=== PATIENT | male | born 1955 | race Caucasian/White ===

== ENCOUNTER 2020-08-25 09:43 | Outpatient (REF) | payer BC, SELFPAY | END 2020-08-25 09:44 | disposition home or self-care (01) | LOC: HO.LAB 09:43 | PROVIDERS: Visit Provider Internal Medicine | DX: Z20.828 Contact with and (suspected) exposure to other viral communicable diseases (principal) | CPT/HCPCS: C9803; U0003 ==

== ENCOUNTER 2024-10-18 10:16 | Inpatient (IN) | payer MEDICARE, SELFPAY ==
[2024-10-18] VITALS (11 sets, daily range): BP systolic 117–172; BP diastolic 11–118; PULSE 99–173; RESP 15–24; TEMP 36.4–36.9; O2SAT 89–95; BMI 22.7
--- NOTE | ~2024-10-18 | XR_ITS ---
EXAMINATION: XR CHEST CLINICAL INFORMATION: sob COMPARISON: None available. TECHNIQUE: Frontal view of the chest was obtained. FINDINGS: Cardiac silhouette is prominent and likely mildly enlarged. Mediastinal and hilar contours are normal. Aortic mural calcification. There are bilateral diffuse patchy airspace opacities, with more confluent opacity in the right lower lung. Loss of the right heart border likely indicates right middle lobe involvement. No pneumothorax. Suspect small right effusion. No definite left effusion. No focal osseous or soft tissue abnormality. Degenerative changes bilateral shoulder joints and spine. XR/XR chest 1V IMPRESSION: 1. Multifocal pneumonitis suspected with more confluent pneumonia in the right base. 2. Suspect small right effusion. 3. Mild cardiac enlargement. A component of underlying CHF is a possibility. 4. Unfortunately, no prior available to compare. Electronically signed by: Cecilio Henry MD 10/18/2024 11:33 AM [facility]
--- NOTE | 2024-10-18 10:42 | ECG_ITS ---
Test Reason : CHEST PAIN Blood Pressure : */* mmHG Vent. Rate : 157 BPM Atrial Rate : * BPM P-R Int : * ms QRS Dur : 96 ms QT Int : 308 ms P-R-T Axes : * -12 44 degrees QTcB Int : 497 ms Atrial fibrillation with rapid ventricular response Nonspecific ST and T wave abnormality Abnormal ECG No previous ECGs available Referred By: Regan Donovan Electronically Signed By: MEDINA ORDONEZ
--- NOTE | 2024-10-18 10:45 | ED.SOB ---
HPI - SOB/Dyspnea General Chief Complaint: Dyspnea Stated Complaint: SOB,RAPID AFIB 160-170 BPM PER EMS Time Seen by Provider: 10/18/24 10:36 Source: patient and EMS Mode of arrival: EMS Limitations: no limitations History of Present Illness ED Provider: DR. Donovan HPI Narrative: A 68-year-old male brought in by ambulance for evaluation of shortness of breath for the past 8 days, worsening with exertion, no clear relieving factors, patient found by EMS to have rapid atrial fibrillation, was given 5 mg of diltiazem by EMS prior to arrival, on arrival patient is in rapid atrial fibrillation. No chest pain. Related Data Home Medications ?Medication ?Instructions ?Recorded ?Confirmed No Known Home Meds 10/18/24 10/18/24 Allergies Allergy/AdvReac Type Severity Reaction Status Date / Time No Known Allergies Allergy Verified 10/18/24 10:40 Review of Systems Review of Systems: All other systems are reviewed and are negative Constitutional: Reports as per HPI and Reports no additional constitutional complaints Eyes: Reports as per HPI and Reports no additional eye complaints Reports system reviewed and no additional complaints, except as documented Cardiovascular: Reports as per HPI and Reports no additional cardiovascular complaints Respiratory: Reports as per HPI and Reports no additional respiratory complaints Gastrointestinal: Reports as per HPI and Reports no additional gastrointestinal complaints Genitourinary: Reports no additional female genitourinary complaints Musculoskeletal: Reports no additional musculoskeletal complaints Skin/Breast: Reports system reviewed and no additional complaints, except as docu Psychiatric: Reports no additional psychiatric complaints Endocrine: Reports no additional endocrine complaints Hematologic/Lymphatic: Reports no additional hematologic/lymphatic complaints Allergic/Immunologic: Reports no additional allergic/immunologic complaints Reports system reviewed and no additional complaints, except as documented and Reports Abnormal speech present FOR[facility] Past Medical History Medical History HTN (hypertension) Social History Social History Patient Tobacco Use Status: Never used Tobacco Smoked in Last 30 Days: Yes Use of substances other than those prescribed or required for medical reasons: Yes Substance Use Type: Crack/Cocaine and Marijuana Advance Directives: No Advance Directives Information Provided: Yes Do you have a plan to hurt others: No Plan Nutrition Risks: No Nutritional Risk Physical Exam Vital Signs: Vital Signs: Last Vital Signs Temp 98.1 F 10/18/24 16:23 Pulse 127 H 10/18/24 18:52 Resp 20 10/18/24 18:52 BP 145/108 H 10/18/24 18:52 Pulse Ox 89 L 10/18/24 18:52 O2 Del Method Room Air 10/18/24 18:52 O2 Flow Rate 2 10/18/24 12:08 BMI result Body Mass Index 22.7 Vital signs have been reviewed and appear to be correct. Blood pressure elevated. Heart rate elevated, Respiratory rate normal. Temperature normal. Oxygen saturation normal. Appearance: Alert. Oriented X3. No acute distress. Head: Normal external exam. Normocephalic. Atraumatic. No Souza signs noted. No raccoon eyes noted Eyes: PERRLA. EOMI. Conjunctiva and sclera normal. Eyelids normal. ENT: TM's Normal. Pharynx normal. Uvula midline. Moist mucous membranes. No trismus noted. No drooling noted. No muffled voice noted. Neck: Normal inspection. Neck supple. FROM. No adenopathy. Thyroid Normal. No meningeal signs. No neck mass noted. CVS: Normal heart rate and rhythm. Heart sound normal. No murmurs noted. Pulses normal throughout. Respiratory: No respiratory distress. Painless inspiration. Breath sounds normal. No wheezes/rales/rhonchi noted. Chest nontender. No accessory muscle usage noted or decreased air movement noted. Abdomen: Soft and nontender. Bowel sounds normal in all 4 quadrants. No distention noted. No organomegaly noted. No visible injury noted. Back: No CVA tenderness. Full range of motion noted. Skin: Skin warm and dry. Normal skin color. Normal skin turgor. No rashes/lesions/lacerations noted. Extremities: No lower extremity edema. Extremities exhibit normal range of motion. Extremities nontender. Neuro: Oriented X 3. Cranial nerve exam: II-XII are grossly intact No motor deficit. No sensory deficit. Reflexes normal. Course Course Course Narrative: 12;00 infection is suspected, abx and fluid was admintrated. no severe spesis or septic shock normal bp and lactic a. Reevaluation(s) Reevaluation #1: Rapid atrial fibrillation initially patient was given diltiazem by EMS had a borderline low blood pressure patient was given metoprolol/digoxin heart rate went from 160s to 120s with slight elevation of troponin with no delta changes case discussed with Dr. Howard who recommended to start on diltiazem IV drip if blood pressure permits for better HR control, and serial trop check. +flu. Time: 16:15 Medications Administered Generic Name Dose Route Start Last Admin Trade Name Freq PRN Reason Stop Dose Admin Diltiazem HCl 125 mg/ Sodium 125 mls @ 0 mls/hr 10/18/24 16:15 10/18/24 16:41 Chloride IVCONT 10 mg/hr .Q0M DEANDRA 10 mls/hr Administration Protocol Per Protocol Discontinued Medications Generic Name Dose Route Start Last Admin Trade Name Freq PRN Reason Stop Dose Admin Ceftriaxone Sodium 1 gm 10/18/24 12:08 10/18/24 12:34 Ceftriaxone Sodium 1 Gm Vial IVPUSH 10/18/24 12:09 1 gm ONCE ONE Administration Digoxin 0.25 mg 10/18/24 10:43 10/18/24 10:58 Digoxin 0.5 Mg/2 Ml Ampul IVPUSH 10/18/24 10:44 0.25 mg ONCE ONE Administration Protocol Diltiazem HCl 20 mg 10/18/24 16:13 10/18/24 16:38 Diltiazem Hcl 50 Mg/10 Ml Vial IVPUSH 10/18/24 16:14 20 mg STAT STA Administration Sodium Chloride 1,000 mls @ 999 mls/hr 10/18/24 10:43 10/18/24 12:39 Ns IV 10/18/24 11:43 Infused .Q1H1M ONE Infusion Sodium Chloride 1,000 mls @ 999 mls/hr 10/18/24 12:09 10/18/24 13:45 Ns IV 10/18/24 13:09 Infused .Q1H1M ONE Infusion Doxycycline Hyclate 100 mg/ 250 mls @ 166.67 mls/hr 10/18/24 16:17 10/18/24 18:26 Sodium Chloride IV 10/18/24 17:46 Infused ONCE ONE Infusion Metoprolol Tartrate 5 mg 10/18/24 10:43 10/18/24 10:58 Metoprolol Tartrate 5 Mg/5 Ml Vial IVPUSH 10/18/24 10:44 5 mg ONCE ONE Administration Protocol Metoprolol Tartrate 5 mg 10/18/24 13:53 10/18/24 14:13 Metoprolol Tartrate 5 Mg/5 Ml Vial IVPUSH 10/18/24 13:54 5 mg ONCE ONE Administration Protocol Medical Decision Making Differential Diagnosis Differential Diagnoses: The differential diagnosis associated with the presentation includes (Pneumonia, pneumothorax, pleural effusion, rapid atrial fibrillation.) Admission/Observation Consideration of admission/observation: Escalation of care including admission/observation considered Consult Healthcare Provider Management of the patient was discussed with: Hospitalist (Dr. Diaz) and Veterinary Hospital Attendant (Dr. Howard) Lab Data MDM Lab Attestation statement: I reviewed the patient's lab results. 10/18/24 10:57 10/18/24 10:57 Labs: Lab Results 10/18/24 10/18/24 10/18/24 Range/Units 10:57 10:57 12:25 WBC 12.7 H (4.8-10.8) X10*3/uL RBC 4.71 (4.60-5.80) X10*6/uL Hgb 14.2 (14.0-18.0) g/dl Hct 42.5 (42.0-52.0) % MCV 90.2 (80.0-98.0) fL MCH 30.1 (27.0-33.0) pg MCHC 33.4 (31.0-36.0) g/dl RDW 13.2 (11.0-16.0) % Plt Count 319 (160-400) X10*3/uL MPV 10.2 (9.4-12.4) fL Immature Gran % (Auto) 0.5 H (0.0-0.4) % Neut % (Auto) 83.5 H (45-73) % Lymph % (Auto) 7.6 L (20-40) % [place] % (Auto) 7.8 (2-11) % Eos % (Auto) 0.3 (0-4) % Baso % (Auto) 0.3 (0-2) % Lymph # (Auto) 1.0 L (1.2-4.9) X10*3/uL [place] # (Auto) 1.0 (0.1-1.2) X10*3/uL Eos # (Auto) 0.0 (0.0-0.4) X10*3/uL Baso # (Auto) 0.0 (0.0-0.2) X10*3/uL Abs Immat Gran (auto) 0.06 H (0.00-0.03) X10*3/uL Absolute Neuts (auto) 10.6 H (2.0-8.3) x10*3/uL Absolute Nucleated RBC 0.000 (0.0-0.012) X10*3/uL Nucleated RBC % (auto) 0.0 (0.0-0.2) /100WBC Hold Purple Top SEE NOTE Sodium 137 (135-145) mmol/L Potassium 4.3 (3.3-5.1) mmol/L Chloride 103 (96-108) mmol/L Carbon Dioxide 25 (22-29) mmol/L Anion Gap 13 (12-20) BUN 30 H (9-16) mg/dL Creatinine 0.89 (0.5-1.4) mg/dL Estim Creat Clear Calc 87.5 Estimated GFR > 60 Random Glucose 108 (60-115) mg/dL Lactic Acid 1.8 (0.5-2.0) mmol/L Calcium 8.6 (8.4-10.2) mg/dL Total Bilirubin 0.6 (0.0-1.0) mg/dL Direct Bilirubin 0.3 (0.0-0.5) mg/dL AST 49 H (5-37) U/L ALT 45 H (0-40) U/L Alkaline Phosphatase 78 (39-117) U/L Troponin I High Sens 155.9 H* (<3.5-35.0) ng/L B-Natriuretic Peptide 1659 H Cancelled (<100) pg/mL Total Protein 6.9 (6.5-8.0) g/dL Albumin 3.0 L (3.5-5.0) g/dL Lipase 16 (8-78) U/L Influenza Type A (PCR) POSITIVE A (Negative) Influenza Type B (PCR) NEGATIVE (Negative) RSV RNA Qual (PCR) NEGATIVE (Negative) SARS-CoV-2 RNA (RT-PCR) NEGATIVE (Negative) 10/18/24 Range/Units 15:08 WBC (4.8-10.8) X10*3/uL RBC (4.60-5.80) X10*6/uL Hgb (14.0-18.0) g/dl Hct (42.0-52.0) % MCV (80.0-98.0) fL MCH (27.0-33.0) pg MCHC (31.0-36.0) g/dl RDW (11.0-16.0) % Plt Count (160-400) X10*3/uL MPV (9.4-12.4) fL Immature Gran % (Auto) (0.0-0.4) % Neut % (Auto) (45-73) % Lymph % (Auto) (20-40) % [place] % (Auto) (2-11) % Eos % (Auto) (0-4) % Baso % (Auto) (0-2) % Lymph # (Auto) (1.2-4.9) X10*3/uL [place] # (Auto) (0.1-1.2) X10*3/uL Eos # (Auto) (0.0-0.4) X10*3/uL Baso # (Auto) (0.0-0.2) X10*3/uL Abs Immat Gran (auto) (0.00-0.03) X10*3/uL Absolute Neuts (auto) (2.0-8.3) x10*3/uL Absolute Nucleated RBC (0.0-0.012) X10*3/uL Nucleated RBC % (auto) (0.0-0.2) /100WBC Hold Purple Top Sodium (135-145) mmol/L Potassium (3.3-5.1) mmol/L Chloride (96-108) mmol/L Carbon Dioxide (22-29) mmol/L Anion Gap (12-20) BUN (9-16) mg/dL Creatinine (0.5-1.4) mg/dL Estim Creat Clear Calc Estimated GFR Random Glucose (60-115) mg/dL Lactic Acid (0.5-2.0) mmol/L Calcium (8.4-10.2) mg/dL Total Bilirubin (0.0-1.0) mg/dL Direct Bilirubin (0.0-0.5) mg/dL AST (5-37) U/L ALT (0-40) U/L Alkaline Phosphatase (39-117) U/L Troponin I High Sens 169.4 H* (<3.5-35.0) ng/L B-Natriuretic Peptide (<100) pg/mL Total Protein (6.5-8.0) g/dL Albumin (3.5-5.0) g/dL Lipase (8-78) U/L Influenza Type A (PCR) (Negative) Influenza Type B (PCR) (Negative) RSV RNA Qual (PCR) (Negative) SARS-CoV-2 RNA (RT-PCR) (Negative) Independent Interpretation I performed an independent interpretation of an: Plain X-Ray (Chest:1. Multifocal pneumonitis suspected with more confluent pneumonia in the right base. 2. Suspect small right effusion. 3. Mild cardiac enlargement. A component of underlying CHF is a possibility. 4. Unfortunately, no prior available to compare. ) Radiology Impression Discussion of test interpretation with radiology: I have reviewed the radiologist's reading. Critical Care Time Critical Care Time Critical Care Time: Yes Total Critical Care Time: 60 Attestation: The patient was critically ill with a high probability of imminent or life-threatening deterioration. I spent greater than 30 minutes of discontinuous time evaluating the patient, delivering critical care at the bedside, discussing evaluating data with consultants. Critical care time does not include time spent performing separately billable procedures or teaching. Time spent performing critical care was 60 minutes. Discharge Plan Discharge Clinical Impression: Atrial fibrillation with RVR, Elevated troponin, Influenza A, Pneumonia, Sepsis Patient Disposition: Admitted As Inpatient
[2024-10-18] MEDS: 0.9 % Sodium Chloride 1,000 ML 999 ML IV ×2 (10:56→12:33)
[2024-10-18] MEDS: Metoprolol Tartrate 5 MG/5 ML VIAL IVPUSH ×2 (10:58→14:13)
[2024-10-18] MEDS: Digoxin 0.5 MG/2 ML AMPUL 0.25 MG IVPUSH (10:58)
[2024-10-18 11:02] LABS: MANUAL DIFF FLAG NO
[2024-10-18 11:03] LABS: Basophils Percent Auto 0.3 % (0-2); Eosinophils Percent Auto 0.3 % (0-4); Hematocrit 42.5 % (42.0-52.0); Hemoglobin 14.2 g/dl (14.0-18.0); Imm Gran Abs Auto 0.06 X10*3/uL (0.00-0.03); Imm Gran Pct Auto 0.5 % (0.0-0.4); Lymphocytes Percent Auto 7.6 % (20-40); Mean Corpuscular HGB Conc 33.4 g/dl (31.0-36.0); Mean Corpuscular Hemoglobin 30.1 pg (27.0-33.0); Mean Corpuscular Volume 90.2 fL (80.0-98.0); Mean Platelet Volume 10.2 fL (9.4-12.4); Monocytes Percent Auto 7.8 % (2-11); Neutrophils Absolute Auto 10.6 x10*3/uL (2.0-8.3); Neutrophils Percent Auto 83.5 % (45-73); Platelet Count 319 X10*3/uL (160-400); Red Blood Count 4.71 X10*6/uL (4.60-5.80); Red Cell Distribution Width 13.2 % (11.0-16.0); White Blood Count 12.7 X10*3/uL (4.8-10.8)
[2024-10-18 11:17] LABS: Alanine Aminotransferase 45 U/L (0-40); Alkaline Phosphatase 78 U/L (39-117); Anion Gap 13 (12-20); Aspartate Amino Transferase 49 U/L (5-37); Bilirubin Direct 0.3 mg/dL (0.0-0.5); Bilirubin Total 0.6 mg/dL (0.0-1.0); Blood Urea Nitrogen 30 mg/dL (9-16); Calcium 8.6 mg/dL (8.4-10.2); Carbon Dioxide 25 mmol/L (22-29); Chloride 103 mmol/L (96-108); Creatinine Clr Calc Pharmacy 87.5; Estimated Glomerular Filt Rate > 60; Glucose Random 108 mg/dL (60-115); Lipase 16 U/L (8-78); Potassium 4.3 mmol/L (3.3-5.1); Sodium 137 mmol/L (135-145); Total Protein 6.9 g/dL (6.5-8.0)
[2024-10-18 11:22] LABS: B Type Natriuretic Peptide 1659 pg/mL (<100)
[2024-10-18 11:29] LABS: Troponin-I High Sensitivity 155.9 ng/L (<3.5-35.0)
[2024-10-18 11:40] LABS: Influenza A PCR POSITIVE (Negative); Influenza B PCR NEGATIVE (Negative); Resp Syncy Virus RNA Qual PCR NEGATIVE (Negative); SARS COV2 PCR INHOUSE NEGATIVE (Negative)
[2024-10-18] MEDS: cefTRIAXone sodium 1 GM VIAL IVPUSH (12:34)
[2024-10-18 12:49] LABS: Lactic Acid 1.8 mmol/L (0.5-2.0)
[2024-10-18 15:39] LABS: Troponin-I High Sensitivity 169.4 ng/L (<3.5-35.0)
[2024-10-18] MEDS: dilTIAZem HCL 50 MG/10 ML VIAL 20 MG IVPUSH (16:38)
[2024-10-18] MEDS: dilTIAZem HCL 125 MG in 0.9 % Sodium Chloride 100 ML 10 MG IVCONT (16:41)
[2024-10-18] MEDS: Doxycycline Hyclate 100 MG in 0.9 % Sodium Chloride 250 ML 166.67 MG IV (16:42)
--- NOTE | 2024-10-18 16:44 | PM.IMHP ---
History of Present Illness Date of Service: 10/18/24 Chief Complaint: Pneumonia, cough, SOB A 68 years old male with no reported past medical history presented to ED with worsening shortness of breath and cough for over 1 week. She reports coughing, dyspnea with exertion, chills but no fever. No chest pain, nausea, vomiting, diarrhea or urinary symptoms. In ED found to be in tachycardia with irregularity. reporting palpitations with no chest pain or heaviness. he noted swelling in his lower extremities. CXR showing possible pneumonia. lab work showing elevated Trop I and BNP. Started on Cardizem drip as multiple doses of IV Cardizem and Metoprolol did not control his heart. Wll be admitted for further work up and treatment. Review of Systems Review of Systems: Yes all other systems are reviewed and are negative [facility] Medical History HTN (hypertension) Social History Smoked in Last 30 Days: Yes Use of substances other than those prescribed or required for medical reasons: Yes Substance Use Type: Crack/Cocaine and Marijuana Advance Directives: No Advance Directives Information Provided: Yes Do you have a plan to hurt others: No Plan Meds Allergies Allergy/AdvReac Type Severity Reaction Status Date / Time No Known Allergies Allergy Verified 10/18/24 10:40 Active Medications: Current Medications Diltiazem HCl 125 mg/ Sodium (Chloride) 125 mls @ 0 mls/hr IVCONT .Q0M [facility]; Protocol Doxycycline Hyclate 100 mg/ (Sodium Chloride) 250 mls @ 166.67 mls/hr IV ONCE ONE Stop: 10/18/24 17:46 Physical Exam Vital Signs and Narrative: Vital Signs: Last Vital Signs Temp 98.1 F 10/18/24 16:23 Pulse 105 H 10/18/24 16:23 Resp 20 10/18/24 16:23 BP 171/111 H 10/18/24 16:23 Pulse Ox 92 10/18/24 16:23 O2 Del Method Room Air 10/18/24 16:23 O2 Flow Rate 2 10/18/24 12:08 BMI result Body Mass Index 22.7 Const: Other: Constitutional : Awake, interactive, not in distress Neck : Normal inspection, Supple Cardiovascular : irregular irregular, no JVP, trace lower extremity edema, tachycardia Respiratory : good bilateral air entry, finme crackles Gastrointestinal: soft, lax, Normal bowel sounds, Non tender Skin : Warm, Dry Neurological : Alert & oriented x3, No focal deficit Results Labs 10/18/24 10:57 10/18/24 10:57 Labs: Laboratory Results - last 24 hr 10/18/24 10/18/24 10/18/24 10:57 10:57 12:25 MCV 90.2 MCH 30.1 MCHC 33.4 RDW 13.2 Plt Count 319 MPV 10.2 Immature Gran % (Auto) 0.5 H Neut % (Auto) 83.5 H Lymph % (Auto) 7.6 L [place] % (Auto) 7.8 Eos % (Auto) 0.3 Baso % (Auto) 0.3 Lymph # (Auto) 1.0 L [place] # (Auto) 1.0 Eos # (Auto) 0.0 Baso # (Auto) 0.0 Abs Immat Gran (auto) 0.06 H Absolute Neuts (auto) 10.6 H Absolute Nucleated RBC 0.000 Nucleated RBC % (auto) 0.0 Hold Purple Top SEE NOTE Anion Gap 13 Estim Creat Clear Calc 87.5 Estimated GFR > 60 Random Glucose 108 Lactic Acid 1.8 Calcium 8.6 Total Bilirubin 0.6 Direct Bilirubin 0.3 AST 49 H ALT 45 H Alkaline Phosphatase 78 B-Natriuretic Peptide 1659 H Cancelled Total Protein 6.9 Albumin 3.0 L Lipase 16 Influenza Type A (PCR) POSITIVE A Influenza Type B (PCR) NEGATIVE RSV RNA Qual (PCR) NEGATIVE SARS-CoV-2 RNA (RT-PCR) NEGATIVE Imaging Radiologist's Impressions: Impressions Chest X-Ray 10/18/24 10:44 IMPRESSION: 1. Multifocal pneumonitis suspected with more confluent pneumonia in the right base. 2. Suspect small right effusion. 3. Mild cardiac enlargement. A component of underlying CHF is a possibility. 4. Unfortunately, no prior available to compare. Electronically signed by: Cecilio Henry MD 10/18/2024 11:33 AM [facility] Assessment and Plan (1) Elevated troponin: Status: Acute (2) Atrial fibrillation with RVR: Status: Acute (3) Sepsis: Status: Acute (4) Pneumonia: Status: Acute (5) CHF (congestive heart failure): Status: Acute Plan A 68 years old male with no reported past medical history presented to ED with worsening shortness of breath and cough for over 1 week. New onset Atrial fibrillation with RvR check Echo Telemetry Cardiology consult Joann Sellers as blood thinner Elevated BNP with non-specific CHF , new likely related to Afib BNP 1659 check Echo if evidence of heart failure Elevated Trop Delta negative for change 155 - [address]\T wave changes No chest pain Likely type 2 Flu A Start Tamiflu Sepsis 2/2 Pneumonia Cover with Azithromycin and Ceftriaxone pending blood cultures DVT PPx Eliquis The patient will need 2 overnight hospital stay for treatment of new onset Afib, CHF and Pneumonia Quality Stroke Does the patient have a stroke diagnosis?: No VTE Prior VTE?: No VTE Risk Level:: Medical - moderate - high VTE Device Contraindication: Treatment Not Indicated VTE Drug Contraindication: N/A - Med Ordered
--- NOTE | 2024-10-18 17:01 | PC.NURSE ---
Resumed care of patient at 1500, pt was very upset about being in the hospital and not understanding what was going on. This RN and MD went into patient room, pt given multiple results, and advised that he needs to be admitted to the hospital, and that he is extremely sick and if he leaves he has a high chance of dying, pt in agreement to stay, pt started on a dilt drip, education given, pt needs met at this time, emotional support given, pt changed over to hopital gown, PO intake given to patient. Pt screen placed in privacy screen to avoid alarms for patient
--- NOTE | 2024-10-18 17:52 | PHA.MEDREC ---
Addendum entered by Melissa Gaston RPh 10/18/24 18:04: reviewed by [facility]. Original Note: Pharmacy Consult ? Medication Reconciliation Pharmacy has completed the medication reconciliation. Patient confirmed he is not taking any medications.
[2024-10-18] MEDS: Oseltamivir Phosphate 75 MG CAPSULE PO (19:58)
[2024-10-18] MEDS: Apixaban 5 MG TABLET PO (22:23)
[2024-10-18 22:39] LABS: Appearance Urine Clear; Color Urine Dark Yellow; Glucose Urine UA Negative (Negative); Leukocyte Esterase Urine Negative (Negative); Nitrite Urine Negative (Negative); Specific Gravity - Urine >= 1.030 (1.005-1.025); UMIC TRIGGER UACC YES; Urine Blood Negative (Negative); Urine Ketones Negative (Negative); Urine Protein 100 (2+) mg/dL (Neg-Trace)
[2024-10-18 22:46] LABS: Bacteria Urine None Seen (None Seen); RBC Urine 0-2 /HPF (0-2); Squamous Epithelial Cell Urine 0-2 /HPF (0-2); WBC Urine 0-5 /HPF (0-5)
--- NOTE | 2024-10-18 23:32 | MHC.EDTECH ---
This tech took over care of pt at 2300,rounded and introduced self to pt,vitals taken,dinner tray taken,pt ate 75% and drank 240MLS,emptied 200MLS from urinal,(dark yellow in color),patient appears comfortable,call hwang in reach
[2024-10-19] VITALS (12 sets, daily range): BP systolic 133–173; BP diastolic 24–111; PULSE 74–126; RESP 13–23; TEMP 36–37.2; O2SAT 74–97
--- NOTE | 2024-10-19 02:27 | PC.NURSE ---
Pt aox4, resting at the bedside. Reports sob. A-fib on the monitor with HR 120's-130's. Hypertensive 154/117. Cardizem drip increased to 15mg/hr per protocol. Monitoring ongoing.
--- NOTE | 2024-10-19 02:31 | PC.NURSE ---
Call made to RT for breathing treatment as pt is sob with labored breathing.
[2024-10-19] MEDS: Albuterol/Iprat 2.5/0.5MG 3 ML AMPUL.NEB INHALE (02:42)
--- NOTE | 2024-10-19 04:05 | MHC.EDTECH ---
Rounds and vitals completed,BP is elevated,155/109, HR 112, O2 sats at 90% on RA, RN was made aware, patient appears comfortable, emptied 225MLS from urinal, call hwang in reach
[2024-10-19 04:41] LABS: Basophils Percent Auto 0.2 % (0-2); Eosinophils Absolute Auto 0.2 X10*3/uL (0.0-0.4); Eosinophils Percent Auto 2.3 % (0-4); Hematocrit 38.8 % (42.0-52.0); Hemoglobin 13.1 g/dl (14.0-18.0); Imm Gran Abs Auto 0.04 X10*3/uL (0.00-0.03); Imm Gran Pct Auto 0.4 % (0.0-0.4); Lymphocytes Absolute Auto 1.2 X10*3/uL (1.2-4.9); Lymphocytes Percent Auto 12.7 % (20-40); MANUAL DIFF FLAG NO; Mean Corpuscular HGB Conc 33.8 g/dl (31.0-36.0); Mean Corpuscular Hemoglobin 30.5 pg (27.0-33.0); Mean Corpuscular Volume 90.4 fL (80.0-98.0); Mean Platelet Volume 11.1 fL (9.4-12.4); Monocytes Percent Auto 10.6 % (2-11); Neutrophils Absolute Auto 6.7 x10*3/uL (2.0-8.3); Neutrophils Percent Auto 73.8 % (45-73); Platelet Count 201 X10*3/uL (160-400); Red Blood Count 4.29 X10*6/uL (4.60-5.80); Red Cell Distribution Width 13.4 % (11.0-16.0); White Blood Count 9.1 X10*3/uL (4.8-10.8)
[2024-10-19 04:59] LABS: Alanine Aminotransferase 36 U/L (0-40); Albumin Level 2.7 g/dL (3.5-5.0); Alkaline Phosphatase 73 U/L (39-117); Anion Gap 13 (12-20); Aspartate Amino Transferase 35 U/L (5-37); Bilirubin Total 0.5 mg/dL (0.0-1.0); Blood Urea Nitrogen 25 mg/dL (9-16); Calcium 8.3 mg/dL (8.4-10.2); Carbon Dioxide 22 mmol/L (22-29); Chloride 105 mmol/L (96-108); Creatinine Clr Calc Pharmacy 114.5; Estimated Glomerular Filt Rate > 60; Glucose Random 101 mg/dL (60-115); Sodium 136 mmol/L (135-145); Total Protein 6.3 g/dL (6.5-8.0)
[2024-10-19] MEDS: dilTIAZem HCL 125 MG in 0.9 % Sodium Chloride 100 ML 15 MG IVCONT (06:24)
--- NOTE | 2024-10-19 07:00 | CA_ITS ---
Transthoracic Echocardiogram Patient (Last, First, Middle): Sudhakar Sprague, Gender: Male Date of : 1955 Age: 68 Procedure Date: 10/19/2024 Procedure Type: Transthoracic Echocardiogram Location: ER Height: 182.88 cm Weight: 75.75 kg BSA: 1.97 m2 Heart Rate: bpm BP: 133 / 103 mmHg [employer] Storage Clerk: BRIJESH Referring MD: Hellen Cagle MD Symptoms: new Afib, CHF Study Quality: Adequate w contrast Conclusions: - The left ventricular systolic function is severely decreased. The visually estimated ejection fraction is between 10-15%. 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 - The left atrium is severely dilated. - There is mild to moderate mitral valve regurgitation. Findings Procedure Information Contrast agent, definity, is being given per protocol without apparent complications. Left Ventricle Moderately increased left ventricular cavity size. There is normal left ventricular wall thickness. The left ventricular systolic function is severely decreased. The visually estimated ejection fraction is between 10 15%. There is severe global hypokinesis. Diastolic function is indeterminate on the basis of available data. Wall Motion Rest Echo Findings The inferolateral wall is akinetic. Right Ventricle Mildly increased right ventricular cavity size. There is mild to moderately decreased right ventricular systolic function. Atria The left atrium is severely dilated. The right atrium is mildly dilated. Aortic Valve The aortic valve was not well visualized. There is no aortic valve stenosis. There is no aortic valve regurgitation. Mitral Valve The mitral valve appears normal. There is mild to moderate mitral valve regurgitation. There is no mitral valve stenosis. Pulmonic Valve There is trace pulmonic valve regurgitation. Tricuspid Valve Normal tricuspid valve structure. There is trace tricuspid valve regurgitation. There is no evidence of pulmonary hypertension. Great Vessels The sinuses of valsalva is normal in size. Venous The inferior vena cava is dilated and collapses less than 50% with inspiration. Pericardium/Pleural There is no evidence of pericardial effusion. Prior Study Comparison No prior study available for comparison. Measurements 2D Linear Measurements IVSd: 0.97 0.6-0.9/0.6-1.0 cm LVIDd: 6.67 3.9-5.3/4.2-5.9 cm LVIDd Index: 3.39 2.4-3.2/2.2-3.1 cm/m2 LVIDs: 5.63 2.0-3.6 cm LVPWd: 0.82 0.7-1.1 cm LA Diam: 5.20 2.7-3.8/3.0-4.0 cm LAIDs Index: 2.64 1.5-2.3 cm/m2 LV Mass: 320.44 67-162/88-224 g LV Mass Index: 162.66 43-95/49-115 g/m2 LVOT Diam: 2.20 3.0+(-)1.3 cm 2D Systolic Function EF 4C: 44.40 >55% EF 2C: 29.40 >55% Mitral Valve MV Pk E: 1.09 MV Decel Time: 123.00 E'Lateral: 8.27 E'Medial: 6.13 E/E' Med: 17.80 E/E' Lat: 13.20 PHT: 36.00 MVA PHT: 6.11 Decel [place]: 8.83 Aortic Valve AoV Pk [place]: 0.76 AoV Mn [place]: 0.57 AoV VTI: 0.13 AoV Pk Grad: 2.00 Aov Mn Grad: 1.00 AWILDA Cont.VTI: 2.82 LVOT LVOT Pk [place]: 0.61 LVOT Mn [place]: 0.45 LVOT VTI: 0.10 LVOT Pk Grad: 1.00 LVOT Mn Grad: 1.00 LVOT Diam: 2.20 LVOT Area: 3.80 Diastolic Function MV Pk E: 1.09 E'Medial: 6.13 E/E' Med: 17.80 E' Laterial: 8.27 E/E' Lat: 13.20 Right Ventricle TAPSE (mm): 12.00 TVS' [place]: 7.47 Tricuspid Valve TR Pk [place]: 2.11 TR Pk Grad: 18.00 RA Press: 15.00 RVSP: 33.00 Great Vessels Aorta Sinus of Valsalva: 4.00 2.0-3.5 cm Ao Asc: 3.50 2.1-3.4 cm Pulmonary Valve PV Pk [place]: 0.50 Peak PV Grad: 1.00 Updated in Other Vendor System with Status of Final Jose A Howard MD electronically signed on 10/19/2024 3:03:04 PM with status of Final
[2024-10-19] MEDS: Apixaban 5 MG TABLET PO ×2 (08:00→20:44)
[2024-10-19] MEDS: Oseltamivir Phosphate 75 MG CAPSULE PO ×2 (08:00→18:42)
[2024-10-19] MEDS: Metoprolol Tartrate 25 MG TABLET PO ×4 (09:11→20:44)
[2024-10-19] MEDS: Azithromycin 500 MG in 0.9 % Sodium Chloride 250 ML 125 MG IV (09:11)
--- NOTE | 2024-10-19 10:02 | P.CONCA_ITS ---
History of Present Illness History of Present Illness Date of Service: 10/19/24 Chief complaint: Afib, RVR, pneumonia Narrative: This is a cardiology consultation regarding atrial fibrillation. Patient denies any previous cardiac issues. No history of any coronary disease or myocardial infarction or cardiomyopathy or arrhythmias or in fact anything cardiac related. He does not take any medications at home and he does not have a PCP either. He came the ER with complaints of coughing, shortness of breath and chills. He states that he has been having flu-like symptoms for the last few weeks. In the ER, he was found to be flu positive. Thought to be having possibly pneumonia. EKG had shown atrial fibrillation with rapid rate. He was put on Cardizem drip. Admitted. He seems to have history of smoking, excessive alcohol as well as drug use. Cocaine use 2 weeks ago per patient. Review of Systems 2 Review of Systems: Yes all other systems are reviewed and are negative Constitutional: Constitutional: Reports as per HPI and Reports no additional constitutional complaints Eyes: Eyes: Reports as per HPI and Denies no additional eye complaints ENT: Denies system reviewed and no additional complaints, except as documented and Reports as per HPI Cardiovascular: Cardiovascular: Reports as per HPI, Reports no additional cardiovascular complaints, Denies acrocyanosis, Denies cool extremities, Denies chest pain, Denies leg edema, Denies lightheadedness, Denies palpitations and Reports dyspnea Respiratory: Respiratory: Reports as per HPI, Denies no additional respiratory complaints and Reports dyspnea Gastrointestinal: Gastrointestinal: Reports as per HPI and Denies no additional gastrointestinal complaints Genitourinary: Genitourinary: Reports no additional male genitourinary complaints and Reports as per HPI Musculoskeletal: Musculoskeletal: Reports no additional musculoskeletal complaints and Reports as per HPI Integumentary/Breasts: Skin/Breast: Reports system reviewed and no additional complaints, except as docu Neurologic: Reports system reviewed and no additional complaints, except as documented and Reports as per HPI Psychiatric: Psychiatric: Reports no additional psychiatric complaints and Reports as per HPI Endocrine: Endocrine: Reports no additional endocrine complaints, Reports as per HPI and Denies palpitations Hematologic/Lymphatic: Hematologic/Lymphatic: Reports no additional hematologic/lymphatic complaints and Reports as per HPI Allergic/Immunologic: Allergic/Immunologic: Reports no additional allergic/immunologic complaints and Reports as per HPI [facility] Past Medical History Medical History HTN (hypertension) Family History Pertinent family history: No pertinent family history Social History Social History (Updated 10/19/24 @ 10:05 by Jose A Howard MD) Alcohol intake: current Alcohol intake frequency: a few times a week Patient Tobacco Use Status: Current everyday Tobacco user Substance Use Type: Crack/Cocaine and Marijuana Meds Allergies Allergy/AdvReac Type Severity Reaction Status Date / Time No Known Allergies Allergy Verified 10/18/24 10:40 Active Medications: Current Medications Acetaminophen (Acetaminophen 325 Mg Tablet) 650 mg PO Q6H PRN PRN Reason: Pain, Mild 1-3,fever,headache Albuterol/Ipratropium (Albuterol/Iprat 2.5/0.5mg 3 Ml Ampul.Neb) 3 ml INHALE Q4H PRN PRN Reason: Shortness of Breath/Wheezing Last Admin: 10/19/24 02:42 Dose: 3 ml Apixaban (Apixaban 5 Mg Tablet) 5 mg PO BID [facility] Last Admin: 10/19/24 08:00 Dose: 5 mg Benzonatate (Benzonatate 100 Mg Capsule) 100 mg PO TID PRN PRN Reason: Cough Calcium Carbonate (Calcium Carbonate 750 Mg Tab.Chew) 750 mg PO Q4H PRN PRN Reason: Heartburn Ceftriaxone Sodium (Ceftriaxone Sodium 1 Gm Vial) 1 gm IVPUSH Q24H DEANDRA Diltiazem HCl 125 mg/ Sodium (Chloride) 125 mls @ 0 mls/hr IVCONT .Q0M [facility]; Protocol Last Admin: 10/19/24 06:24 Dose: 15 mg/hr, 15 mls/hr Azithromycin 500 mg/ Sodium (Chloride) 250 mls @ 125 mls/hr IV Q24H DEANDRA Last Admin: 10/19/24 09:11 Dose: 125 mls/hr Magnesium Hydroxide (Milk Of Magnesia 30 Ml Oral.Susp) 30 ml PO DAILY PRN PRN Reason: Constipation Melatonin (Melatonin 3 Mg Tablet) 6 mg PO BEDTIME PRN PRN Reason: Insomnia Metoprolol Tartrate (Metoprolol Tartrate 25 Mg Tablet) 25 mg PO QID [facility]; Protocol Last Admin: 10/19/24 09:11 Dose: 25 mg Ondansetron HCl (Ondansetron Hcl 4 Mg/2 Ml Vial) 4 mg IVPUSH Q8H PRN PRN Reason: Nausea and Vomiting Oseltamivir Phosphate (Oseltamivir Phosphate 75 Mg Capsule) 75 mg PO Q12H [facility] Stop: 10/23/24 07:01 Last Admin: 10/19/24 08:00 Dose: 75 mg Sodium Chloride (0.9 % Sodium Chloride Flush 3 Ml Syringe) 3 ml IVFLUSH QSHIFT [facility] Last Admin: 10/19/24 08:02 Dose: Not Given Home Medications ?Medication ?Instructions ?Recorded ?Confirmed ?Last Taken ?Type No Known Home Meds 10/18/24 10/18/24 Unknown History Physical Exam 2 Vital Signs: Vital Signs: Last Vital Signs Temp 97.8 F 10/19/24 08:45 Pulse 116 H 10/19/24 09:11 Resp 21 H 10/19/24 08:45 BP 133/103 H 10/19/24 09:11 Pulse Ox 92 10/19/24 08:45 O2 Del Method Room Air 10/19/24 08:45 O2 Flow Rate 2 10/18/24 12:08 BMI result Body Mass Index 22.7 Const: General: comfortable and no acute distress O rientation/consciousness: patient oriented x3 HEENT: Other: Unremarkable Head: Yes normal to inspection Neck: Neck: Yes normal visual inspection Chest: Chest palpation & inspection: normal inspection of the chest Resp: Auscultation: clear to auscultation bilaterally Cardio: Palpation: normal PMI Heart sounds: S1 normal heart sound present, S2 normal heart sound present, no gallops, no murmurs and no rubs GI: Palpation (GI): Soft to palpation Back/Spine/Pelvis: Other: unremarkable Skin: General skin exam: no rashes or lesions noted Neuro: General: patient oriented x3 Extrem: General: Yes normal to inspection Psych: Mental Status: mental status grossly normal Objective Labs and Meds 10/19/24 04:07 10/19/24 04:07 Lab results: Laboratory Results - last 24 hr 10/18/24 10/18/24 10/18/24 10:57 10:57 12:25 WBC 12.7 H RBC 4.71 Hgb 14.2 Hct 42.5 MCV 90.2 MCH 30.1 MCHC 33.4 RDW 13.2 Plt Count 319 MPV 10.2 Immature Gran % (Auto) 0.5 H Neut % (Auto) 83.5 H Lymph % (Auto) 7.6 L [place] % (Auto) 7.8 Eos % (Auto) 0.3 Baso % (Auto) 0.3 Lymph # (Auto) 1.0 L [place] # (Auto) 1.0 Eos # (Auto) 0.0 Baso # (Auto) 0.0 Abs Immat Gran (auto) 0.06 H Absolute Neuts (auto) 10.6 H Absolute Nucleated RBC 0.000 Nucleated RBC % (auto) 0.0 Hold Purple Top SEE NOTE Sodium 137 Potassium 4.3 Chloride 103 Carbon Dioxide 25 Anion Gap 13 BUN 30 H Creatinine 0.89 Estim Creat Clear Calc 87.5 Estimated GFR > 60 Random Glucose 108 Lactic Acid 1.8 Calcium 8.6 Total Bilirubin 0.6 Direct Bilirubin 0.3 AST 49 H ALT 45 H Alkaline Phosphatase 78 Troponin I High Sens 155.9 H* B-Natriuretic Peptide 1659 H Cancelled Total Protein 6.9 Albumin 3.0 L Lipase 16 Urine Color Urine Appearance Urine pH Ur Specific [place] Urine Protein Urine Glucose (UA) Urine Ketones Urine Blood Urine Nitrite Ur Leukocyte Esterase Urine RBC Urine WBC Ur Squamous Epith Cells Urine Bacteria Hyaline Casts Influenza Type A (PCR) POSITIVE A Influenza Type B (PCR) NEGATIVE RSV RNA Qual (PCR) NEGATIVE SARS-CoV-2 RNA (RT-PCR) NEGATIVE 10/18/24 10/18/24 10/19/24 15:08 22:31 04:07 WBC 9.1 RBC 4.29 L Hgb 13.1 L Hct 38.8 L MCV 90.4 MCH 30.5 MCHC 33.8 RDW 13.4 Plt Count 201 D MPV 11.1 Immature Gran % (Auto) 0.4 Neut % (Auto) 73.8 H Lymph % (Auto) 12.7 L [place] % (Auto) 10.6 Eos % (Auto) 2.3 Baso % (Auto) 0.2 Lymph # (Auto) 1.2 [place] # (Auto) 1.0 Eos # (Auto) 0.2 Baso # (Auto) 0.0 Abs Immat Gran (auto) 0.04 H Absolute Neuts (auto) 6.7 Absolute Nucleated RBC 0.000 Nucleated RBC % (auto) 0.0 Hold Purple Top Sodium 136 Potassium 4.0 Chloride 105 Carbon Dioxide 22 Anion Gap 13 BUN 25 H Creatinine 0.68 Estim Creat Clear Calc 114.5 Estimated GFR > 60 Random Glucose 101 Lactic Acid Calcium 8.3 L Total Bilirubin 0.5 Direct Bilirubin AST 35 ALT 36 Alkaline Phosphatase 73 Troponin I High Sens 169.4 H* B-Natriuretic Peptide Total Protein 6.3 L Albumin 2.7 L Lipase Urine Color Dark Yellow Urine Appearance Clear Urine pH 5.0 Ur Specific [place] >= 1.030 H Urine Protein 100 (2+) H Urine Glucose (UA) Negative Urine Ketones Negative Urine Blood Negative Urine Nitrite Negative Ur Leukocyte Esterase Negative Urine RBC 0-2 Urine WBC 0-5 Ur Squamous Epith Cells 0-2 Urine Bacteria None Seen Hyaline Casts 3-5 Influenza Type A (PCR) Influenza Type B (PCR) RSV RNA Qual (PCR) SARS-CoV-2 RNA (RT-PCR) ECG Interpretation: EKG with atrial fibrillation at a rate of 157/Min. Nonspecific ST-T changes. Imaging Radiologist's impression: Impressions Chest X-Ray 10/18/24 10:44 IMPRESSION: 1. Multifocal pneumonitis suspected with more confluent pneumonia in the right base. 2. Suspect small right effusion. 3. Mild cardiac enlargement. A component of underlying CHF is a possibility. 4. Unfortunately, no prior available to compare. Electronically signed by: Cecilio Henry MD 10/18/2024 11:33 AM [facility] [place] Assessment and Plan (1) Atrial fibrillation with RVR: Status: Acute Plan Slight increase in high sensitivity troponins could be from demand. Possible underlying CAD. Cardiac BNP is elevated which could indicate an underlying LV dysfunction. Influenza A positive. EKG shows atrial fibrillation rapid ventricular response. Duration is unclear. For management, keep on Cardizem drip. Digoxin load. If indeed shows clear LV dysfunction, then we will change to beta-blockers. I am not clear how compliant he will be. If the ventricular rate can be controlled well with medications, would prefer that. Anticoagulation with Eliquis. Then after ensuring he will be into it compliant, then plan cardioversion after 4 weeks of anticoagulation. If we cannot control the rate for medications, then we will look into MILLICENT/cardioversion. However, he is also having active influenza and hence that will be an issue. We will follow up with you. Procedures Date of Service Date of Service: 10/19/24
[2024-10-19] MEDS: Digoxin 0.5 MG/2 ML AMPUL 0.25 MG IVPUSH ×2 (11:40→16:31)
[2024-10-19] MEDS: cefTRIAXone sodium 1 GM VIAL IVPUSH (11:43)
--- NOTE | 2024-10-19 12:30 | MHC.CM.PN ---
IMM 10/19/24, Pt. lives alone, he does not have a PCP, [facility] listed was given to him. He is functionally independent, no home services or DME. HCP discussed, he declined to complete one. DCP: home, self care, CM to follow for DC needs.
[2024-10-19] MEDS: 0.9 % Sodium Chloride Flush 3 ML SYRINGE IVFLUSH ×2 (16:35→20:47)
--- NOTE | 2024-10-19 17:49 | P.PNIM_ITS ---
Subjective Subjective Date of Service: 10/19/24 Interval History: seen and evaluated heart rate better controlled no signs of withdrawal no other events Review of Systems Review of Systems: Yes all other systems are reviewed and are negative Physical Exam 2 Vital Signs: Vital Signs: Last Vital Signs Temp 98.3 F 10/19/24 15:46 Pulse 79 10/19/24 15:46 Resp 23 H 10/19/24 15:46 BP 139/102 H 10/19/24 15:46 Pulse Ox 96 10/19/24 15:46 O2 Del Method Room Air 10/19/24 15:46 O2 Flow Rate 2 10/18/24 12:08 BMI result Body Mass Index 22.7 Const: Other: Constitutional : Awake, interactive, not in distress Neck : Normal inspection, Supple Cardiovascular : irregular irregular, no JVP, trace lower extremity edema, tachycardia Respiratory : good bilateral air entry, finme crackles Gastrointestinal: soft, lax, Normal bowel sounds, Non tender Skin : Warm, Dry Neurological : Alert & oriented x3, No focal deficit Objective Data Active Medications Acetaminophen (Acetaminophen 325 Mg Tablet) 650 mg PO Q6H PRN PRN Reason: Pain, Mild 1-3,fever,headache Albuterol/Ipratropium (Albuterol/Iprat 2.5/0.5mg 3 Ml Ampul.Neb) 3 ml INHALE Q4H PRN PRN Reason: Shortness of Breath/Wheezing Last Admin: 10/19/24 02:42 Dose: 3 ml Documented By: HERMILA Apixaban (Apixaban 5 Mg Tablet) 5 mg PO BID [facility] Last Admin: 10/19/24 08:00 Dose: 5 mg Documented By: JOEY Benzonatate (Benzonatate 100 Mg Capsule) 100 mg PO TID PRN PRN Reason: Cough Calcium Carbonate (Calcium Carbonate 750 Mg Tab.Chew) 750 mg PO Q4H PRN PRN Reason: Heartburn Ceftriaxone Sodium (Ceftriaxone Sodium 1 Gm Vial) 1 gm IVPUSH Q24H [facility] Last Admin: 10/19/24 11:43 Dose: 1 gm Documented By: CORTNEY Digoxin (Digoxin 0.25 Mg Tablet) 0.25 mg PO DAILY [facility]; Protocol Diltiazem HCl 125 mg/ Sodium (Chloride) 125 mls @ 0 mls/hr IVCONT .Q0M [facility]; Protocol Last Titration: 10/19/24 13:37 Dose: Infused Documented By: MICHAEL Azithromycin 500 mg/ Sodium (Chloride) 250 mls @ 125 mls/hr IV Q24H [facility] Last Infusion: 10/19/24 11:40 Dose: Infused Documented By: CORTNEY Magnesium Hydroxide (Milk Of Magnesia 30 Ml Oral.Susp) 30 ml PO DAILY PRN PRN Reason: Constipation Melatonin (Melatonin 3 Mg Tablet) 6 mg PO BEDTIME PRN PRN Reason: Insomnia Metoprolol Tartrate (Metoprolol Tartrate 25 Mg Tablet) 25 mg PO QID [facility]; Protocol Last Admin: 10/19/24 16:31 Dose: 25 mg Documented By: YEMI Ondansetron HCl (Ondansetron Hcl 4 Mg/2 Ml Vial) 4 mg IVPUSH Q8H PRN PRN Reason: Nausea and Vomiting Oseltamivir Phosphate (Oseltamivir Phosphate 75 Mg Capsule) 75 mg PO Q12H [facility] Stop: 10/23/24 07:01 Last Admin: 10/19/24 08:00 Dose: 75 mg Documented By: JOEY Sodium Chloride (0.9 % Sodium Chloride Flush 3 Ml Syringe) 3 ml IVFLUSH QSHIFT [facility] Last Admin: 10/19/24 16:35 Dose: 3 ml Documented By: YEMI Labs 10/19/24 04:07 10/19/24 04:07 Labs: Laboratory Results - last 24 hr 10/18/24 10/19/24 22:31 04:07 MCV 90.4 MCH 30.5 MCHC 33.8 RDW 13.4 Plt Count 201 D MPV 11.1 Immature Gran % (Auto) 0.4 Neut % (Auto) 73.8 H Lymph % (Auto) 12.7 L [place] % (Auto) 10.6 Eos % (Auto) 2.3 Baso % (Auto) 0.2 Lymph # (Auto) 1.2 [place] # (Auto) 1.0 Eos # (Auto) 0.2 Baso # (Auto) 0.0 Abs Immat Gran (auto) 0.04 H Absolute Neuts (auto) 6.7 Absolute Nucleated RBC 0.000 Nucleated RBC % (auto) 0.0 Anion Gap 13 Estim Creat Clear Calc 114.5 Estimated GFR > 60 Random Glucose 101 Calcium 8.3 L Total Bilirubin 0.5 AST 35 ALT 36 Alkaline Phosphatase 73 Total Protein 6.3 L Albumin 2.7 L Urine Color Dark Yellow Urine Appearance Clear Urine pH 5.0 Ur Specific [place] >= 1.030 H Urine Protein 100 (2+) H Urine Glucose (UA) Negative Urine Ketones Negative Urine Blood Negative Urine Nitrite Negative Ur Leukocyte Esterase Negative Urine RBC 0-2 Urine WBC 0-5 Ur Squamous Epith Cells 0-2 Urine Bacteria None Seen Hyaline Casts 3-5 Microbiology Microbiology Results: Microbiology 10/18/24 12:25 Blood Culture - Preliminary Blood - Venous No growth after 24 hours. 10/18/24 12:25 Blood Culture - Preliminary Blood - Venous No growth after 24 hours. Assessment and Plan (1) Influenza A: Status: Acute (2) CHF (congestive heart failure): Status: Acute (3) Pneumonia: Status: Acute (4) Sepsis: Status: Acute (5) Atrial fibrillation with RVR: Status: Acute Plan A 68 years old male with no reported past medical history presented to ED with worsening shortness of breath and cough for over 1 week. New onset Atrial fibrillation with RvR check Echo Telemetry Cardiology consult dc Cardizem drip start MEtoprolol 25 mg Q6 Load with Digoxin Eliquis as blood thinner Elevated BNP with new systolic CHF likely related to Afib BNP 1659 Echo with low EF 10-15% Cardiology input appreciated, cardioversion in 4 weeks of anticoagulation Elevated Trop Delta negative for change 155 - [address]\T wave changes No chest pain, Likely type 2 Flu A Start Tamiflu Sepsis 2/2 Pneumonia Cover with Azithromycin and Ceftriaxone pending blood cultures DVT PPx Eliquis The patient will need overnight hospital stay for treatment of new onset Afib, CHF and Pneumonia Quality Stroke Does the patient have a stroke diagnosis?: No VTE Prior VTE?: No VTE Risk Level:: Medical - moderate - high VTE Device Contraindication: Treatment Not Indicated VTE Drug Contraindication: N/A - Med Ordered
[2024-10-19] MEDS: Melatonin 3 MG TABLET 6 MG PO (23:43)
[2024-10-20] VITALS (13 sets, daily range): BP systolic 135–166; BP diastolic 93–125; PULSE 86–130; RESP 16–25; TEMP 36.2–37.1; O2SAT 87–98
[2024-10-20] MEDS: Metoprolol Tartrate 5 MG/5 ML VIAL IVPUSH ×2 (00:05→04:38)
[2024-10-20] MEDS: LORazepam 2 MG/ML VIAL 1 MG IVPUSH (04:37)
[2024-10-20 07:22] LABS: MANUAL DIFF FLAG NO
[2024-10-20 07:25] LABS: Basophils Percent Auto 0.4 % (0-2); Eosinophils Absolute Auto 0.3 X10*3/uL (0.0-0.4); Eosinophils Percent Auto 2.7 % (0-4); Hematocrit 39.3 % (42.0-52.0); Hemoglobin 13.1 g/dl (14.0-18.0); Imm Gran Abs Auto 0.04 X10*3/uL (0.00-0.03); Imm Gran Pct Auto 0.4 % (0.0-0.4); Lymphocytes Absolute Auto 0.8 X10*3/uL (1.2-4.9); Lymphocytes Percent Auto 7.3 % (20-40); Mean Corpuscular HGB Conc 33.3 g/dl (31.0-36.0); Mean Corpuscular Hemoglobin 30.3 pg (27.0-33.0); Mean Corpuscular Volume 90.8 fL (80.0-98.0); Mean Platelet Volume 11.2 fL (9.4-12.4); Monocytes Absolute Auto 0.8 X10*3/uL (0.1-1.2); Monocytes Percent Auto 7.5 % (2-11); Neutrophils Percent Auto 81.7 % (45-73); Platelet Count 160 X10*3/uL (160-400); Red Blood Count 4.33 X10*6/uL (4.60-5.80); Red Cell Distribution Width 13.2 % (11.0-16.0)
[2024-10-20 07:42] LABS: Digoxin 0.7 ng/mL (0.8-2.0)
[2024-10-20 07:48] LABS: Anion Gap 12 (12-20); Blood Urea Nitrogen 24 mg/dL (9-16); Calcium 8.2 mg/dL (8.4-10.2); Carbon Dioxide 22 mmol/L (22-29); Chloride 106 mmol/L (96-108); Creatinine Clr Calc Pharmacy 99.8; Estimated Glomerular Filt Rate > 60; Glucose Random 95 mg/dL (60-115); Sodium 136 mmol/L (135-145)
[2024-10-20] MEDS: Apixaban 5 MG TABLET PO ×2 (07:54→20:13)
[2024-10-20] MEDS: Oseltamivir Phosphate 75 MG CAPSULE PO ×2 (07:54→18:05)
[2024-10-20] MEDS: 0.9 % Sodium Chloride Flush 3 ML SYRINGE IVFLUSH ×3 (07:56→20:17)
[2024-10-20] MEDS: Azithromycin 500 MG in 0.9 % Sodium Chloride 250 ML 125 MG IV (07:56)
[2024-10-20] MEDS: Digoxin 0.5 MG/2 ML AMPUL 0.25 MG IVPUSH (08:01)
[2024-10-20] MEDS: Metoprolol Tartrate 50 MG TABLET PO ×4 (08:01→20:12)
--- NOTE | 2024-10-20 09:33 | MHC.SHP ---
Pre-Procedural Eval Section A - 24 Hr Update-Section A only Date of Service: 10/20/24 The patient is an INPATIENT: Yes Section B - Complete if H&P > 30 days Chief Complaint: Afib, RVR, pneumonia Allergies: Allergies Allergy/AdvReac Type Severity Reaction Status Date / Time No Known Allergies Allergy Verified 10/18/24 10:40 Plan I have reviewed the history and physical and performed a pertinent physical examination on my patient. No changes have occurred unless specified. Time Spent With Patient Time: Total time managing care of this patient today ____ minutes.
--- NOTE | 2024-10-20 09:35 | HO.CARDIVERS ---
Cardioversion Procedure Note Cardioversion Date of Procedure: 10/20/2024 Pre-Op Diagnosis: Atrial fibrillation with rapid ventricular response Post-Op Diagnosis: Atrial fibrillation with rapid ventricular response Consent: Informed consent obtained. Procedure: After informed consent was obtained, patient was taken to the operating room. A transesophageal echocardiogram was initially performed than that showed no evidence of left atrial appendage thrombus. Subsequently, 120 joules of synchronized shock was administered with pads in the anteroposterior position. That converted him from atrial fibrillation to sinus rhythm but briefly. Then he went back into atrial fibrillation. Again, a 2nd shock of 120 joules administered. Again, briefly converted but then went back into atrial fibrillation. Complications: None. Impression: Unsuccessful cardioversion. Recommendations: Start amiodarone. Continue beta-blockers. Continue anticoagulation. Diuretics for heart failure.
--- NOTE | 2024-10-20 10:00 | CA_ITS ---
Transesophageal Echocardiogram Patient (Last, First, Middle): Sudhakar Sprague, Gender: Male Date of : 1955 Age: 68 Procedure Date: 10/20/2024 Procedure Type: Transesophageal Echocardiogram Location: [facility] [place] Height: 182.88 cm Weight: 75.75 kg BSA: 1.97 m2 Heart Rate: bpm BP: 139 / 114 mmHg Assistant Construction Superintendent: LOYD Referring MD: Jose A Howard MD Symptoms: AF/CHF Conclusion: ??? There is no evidence of a thrombus in the left atrial appendage. Findings Procedure Information Consent was obtained prior to the procedure. Pre MILLICENT oral cavity was checked and revealed no overcrowding. The adult 3D probe was passed with no difficulty. Left Ventricle The left ventricular systolic function is severely decreased. Atria There is no evidence of a thrombus in the left atrial appendage. Patent foramen ovale detected using by color Doppler. There is evidence of a patent foramen ovale with left to right shunting. Aortic Valve There is a normal trileaflet aortic valve. There is no aortic valve stenosis. There is trace (trivial) aortic valve regurgitation. Mitral Valve There is trace mitral valve regurgitation. There is no mitral valve stenosis. Pulmonic Valve The pulmonic valve was not well visualized. Tricuspid Valve There is mild tricuspid valve regurgitation. Great Vessels Small plaque is seen in the arch. Pericardium/Pleural There is no evidence of pericardial effusion. Prior Study Comparison No significant change compared to prior study dated: 10/19/2024. Updated by Jose A Howard on 02:40 PM with Status of Final Jose A Howard MD electronically signed on 10/21/2024 2:40:15 PM with status of Final
--- NOTE | 2024-10-20 10:03 | P.PNCA_ITS ---
Subjective Subjective Date of Service: 10/20/24 Interval history: Seen in follow up. He states that he is feeling better. However, heart rates are still rapid. Review of Systems Review of Systems Yes all other systems are reviewed and are negative Constitutional: Reports as per HPI and Reports no additional constitutional complaints Eyes: Reports as per HPI and Denies no additional eye complaints Denies system reviewed and no additional complaints, except as documented and Reports as per HPI Cardiovascular: Reports as per HPI, Reports no additional cardiovascular complaints, Denies acrocyanosis, Denies cool extremities, Denies chest pain, Denies leg edema, Denies lightheadedness, Denies palpitations and Reports dyspnea Respiratory: Reports as per HPI, Denies no additional respiratory complaints and Reports dyspnea Gastrointestinal: Reports as per HPI and Denies no additional gastrointestinal complaints Genitourinary: Reports no additional male genitourinary complaints and Reports as per HPI Musculoskeletal: Reports no additional musculoskeletal complaints and Reports as per HPI Skin/Breast: Reports system reviewed and no additional complaints, except as docu Reports system reviewed and no additional complaints, except as documented and Reports as per HPI Psychiatric: Reports no additional psychiatric complaints and Reports as per HPI Endocrine: Reports no additional endocrine complaints, Reports as per HPI and Denies palpitations Hematologic/Lymphatic: Reports no additional hematologic/lymphatic complaints and Reports as per HPI Allergic/Immunologic: Reports no additional allergic/immunologic complaints and Reports as per HPI Physical Exam Vital Signs: Last Vital Signs Temp 97.4 F 10/20/24 07:41 Pulse 130 H 10/20/24 08:01 Resp 20 10/20/24 07:41 BP 139/114 H 10/20/24 08:01 Pulse Ox 94 10/20/24 07:41 O2 Del Method Room Air 10/20/24 07:41 O2 Flow Rate 2 10/18/24 12:08 BMI result Body Mass Index 22.7 Const General: comfortable and no acute distress Orientation/consciousness: patient oriented x3 HEENT Other: Unremarkable Head: Yes normal to inspection Neck Neck: Yes normal visual inspection Chest Chest palpation & inspection: normal inspection of the chest Resp Auscultation: clear to auscultation bilaterally Cardio Palpation: normal PMI Heart sounds: S1 normal heart sound present, S2 normal heart sound present, no gallops, no murmurs and no rubs GI Palpation (GI): Soft to palpation Back/Spine/Pelvis Other: unremarkable Skin General skin exam: no rashes or lesions noted Neuro General: patient oriented x3 Extrem General: Yes normal to inspection Psych Mental Status: mental status grossly normal Objective Labs and Meds 10/20/24 06:15 10/20/24 06:15 Lab results: Laboratory Results - last 24 hr 10/20/24 06:15 WBC 11.0 H RBC 4.33 L Hgb 13.1 L Hct 39.3 L MCV 90.8 MCH 30.3 MCHC 33.3 RDW 13.2 Plt Count 160 MPV 11.2 Immature Gran % (Auto) 0.4 Neut % (Auto) 81.7 H Lymph % (Auto) 7.3 L [place] % (Auto) 7.5 Eos % (Auto) 2.7 Baso % (Auto) 0.4 Lymph # (Auto) 0.8 L [place] # (Auto) 0.8 Eos # (Auto) 0.3 Baso # (Auto) 0.0 Abs Immat Gran (auto) 0.04 H Absolute Neuts (auto) 9.0 H Absolute Nucleated RBC 0.000 Nucleated RBC % (auto) 0.0 Sodium 136 Potassium 4.0 Chloride 106 Carbon Dioxide 22 Anion Gap 12 BUN 24 H Creatinine 0.78 Estim Creat Clear Calc 99.8 Estimated GFR > 60 Random Glucose 95 Calcium 8.2 L TSH 1.70 Digoxin 0.7 L Progress Note: A&P Assessment and plan (1) Atrial fibrillation with RVR: Status: Acute Assessment and Plan: Not getting better with just medications. Hence inspite of having Influenza, would need MILLICENT/CV. Otherwise high risk of worsening CHF/decompensation. Discussed with patient and he agrees. Continue Eliquis. (2) Acute systolic (congestive) heart failure: Status: Acute Assessment and Plan: Markedly diminished LVEF. Could be some combination of ischemic and non-ischemic etiologies, cocaine etc., Will need GDMT. Diuresis. Time Spent With Patient Time: Total time managing care of this patient today ____ minutes. Progress Note: Quality Stroke Does the patient have a stroke diagnosis?: No Procedures Date of Service Date of Service: 10/20/24
--- NOTE | 2024-10-20 11:23 | P.CONAN_ITS ---
HPI - Anesthesia Eval Consult details Narrative: Atrial fibrilation RVR PMFSH Active Problems Active Problems: All Active Problems Acute systolic (congestive) heart failure (Acute) Influenza A (Acute) CHF (congestive heart failure) (Acute) Pneumonia (Acute) Sepsis (Acute) Elevated troponin (Acute) Atrial fibrillation with RVR (Acute) Past Medical History Medical History HTN (hypertension) Family History Family history of problems with anesthesia: No Surgical History History of Problems with Anesthesia: No Social History Social History (Updated 10/19/24 @ 10:05 by Jose A Howard MD) Household Members: None Housing: House Do you presently have visiting nurse or other home services: No Alcohol intake: current Alcohol intake frequency: a few times a week Patient Tobacco Use Status: Current everyday Tobacco user Tobacco use type: Cigarette Cigarette Packs Per Day: 0.5 Cigarettes Per Day: 10.0 Substance Use Type: Crack/Cocaine and Marijuana service: No Meds Allergies Allergy/AdvReac Type Severity Reaction Status Date / Time No Known Allergies Allergy Verified 10/18/24 10:40 Active Medications: Current Medications Acetaminophen (Acetaminophen 325 Mg Tablet) 650 mg PO Q6H PRN PRN Reason: Pain, Mild 1-3,fever,headache Albuterol/Ipratropium (Albuterol/Iprat 2.5/0.5mg 3 Ml Ampul.Neb) 3 ml INHALE Q4H PRN PRN Reason: Shortness of Breath/Wheezing Last Admin: 10/19/24 02:42 Dose: 3 ml Apixaban (Apixaban 5 Mg Tablet) 5 mg PO BID [facility] Last Admin: 10/20/24 07:54 Dose: 5 mg Benzonatate (Benzonatate 100 Mg Capsule) 100 mg PO TID PRN PRN Reason: Cough Calcium Carbonate (Calcium Carbonate 750 Mg Tab.Chew) 750 mg PO Q4H PRN PRN Reason: Heartburn Ceftriaxone Sodium (Ceftriaxone Sodium 1 Gm Vial) 1 gm IVPUSH Q24H [facility] Last Admin: 10/19/24 11:43 Dose: 1 gm Diltiazem HCl 125 mg/ Sodium (Chloride) 125 mls @ 0 mls/hr IVCONT .Q0M [facility]; Protocol Last Titration: 10/19/24 13:37 Dose: Infused Azithromycin 500 mg/ Sodium (Chloride) 250 mls @ 125 mls/hr IV Q24H [facility] Last Infusion: 10/20/24 10:02 Dose: Infused Lorazepam (Lorazepam 2 Mg/Ml Vial) 1 mg IVPUSH Q4H PRN PRN Reason: Anxiety Magnesium Hydroxide (Milk Of Magnesia 30 Ml Oral.Susp) 30 ml PO DAILY PRN PRN Reason: Constipation Melatonin (Melatonin 3 Mg Tablet) 6 mg PO BEDTIME PRN PRN Reason: Insomnia Last Admin: 10/19/24 23:43 Dose: 6 mg Metoprolol Tartrate (Metoprolol Tartrate 5 Mg/5 Ml Vial) 5 mg IVPUSH Q6H PRN; Protocol PRN Reason: Heart Rate >110, hold SBP<100 Last Admin: 10/20/24 04:38 Dose: 5 mg Metoprolol Tartrate (Metoprolol Tartrate 50 Mg Tablet) 50 mg PO QID [facility]; Protocol Last Admin: 10/20/24 08:01 Dose: 50 mg Ondansetron HCl (Ondansetron Hcl 4 Mg/2 Ml Vial) 4 mg IVPUSH Q8H PRN PRN Reason: Nausea and Vomiting Oseltamivir Phosphate (Oseltamivir Phosphate 75 Mg Capsule) 75 mg PO Q12H [facility] Stop: 10/23/24 07:01 Last Admin: 10/20/24 07:54 Dose: 75 mg Sodium Chloride (0.9 % Sodium Chloride Flush 3 Ml Syringe) 3 ml IVFLUSH QSHIFT [facility] Last Admin: 10/20/24 07:56 Dose: 3 ml Home Medications ?Medication ?Instructions ?Recorded ?Confirmed ?Last Taken ?Type No Known Home Meds 10/18/24 10/18/24 Unknown History Exam Height,Weight and Vital Signs: Height 6 ft Weight 75.8 kg Last Vital Signs Temp 97.4 F 10/20/24 07:41 Pulse 130 H 10/20/24 08:01 Resp 20 10/20/24 07:41 BP 139/114 H 10/20/24 08:01 Pulse Ox 94 10/20/24 07:41 O2 Del Method Room Air 10/20/24 07:41 O2 Flow Rate 2 10/18/24 12:08 Pertinent Lab Results Pertinent Lab Results: Laboratory Tests 10/18/24 10/18/24 10/18/24 10:57 10:57 12:25 WBC 12.7 H RBC 4.71 Hgb 14.2 Hct 42.5 MCV 90.2 MCH 30.1 MCHC 33.4 RDW 13.2 Plt Count 319 MPV 10.2 Immature Gran % (Auto) 0.5 H Neut % (Auto) 83.5 H Lymph % (Auto) 7.6 L [place] % (Auto) 7.8 Eos % (Auto) 0.3 Baso % (Auto) 0.3 Lymph # (Auto) 1.0 L [place] # (Auto) 1.0 Eos # (Auto) 0.0 Baso # (Auto) 0.0 Abs Immat Gran (auto) 0.06 H Absolute Neuts (auto) 10.6 H Absolute Nucleated RBC 0.000 Nucleated RBC % (auto) 0.0 Hold Purple Top SEE NOTE Sodium 137 Potassium 4.3 Chloride 103 Carbon Dioxide 25 Anion Gap 13 BUN 30 H Creatinine 0.89 Estim Creat Clear Calc 87.5 Estimated GFR > 60 Random Glucose 108 Lactic Acid 1.8 Calcium 8.6 Total Bilirubin 0.6 Direct Bilirubin 0.3 AST 49 H ALT 45 H Alkaline Phosphatase 78 Troponin I High Sens 155.9 H* B-Natriuretic Peptide 1659 H Cancelled Total Protein 6.9 Albumin 3.0 L Lipase 16 TSH Urine Color Urine Appearance Urine pH Ur Specific [place] Urine Protein Urine Glucose (UA) Urine Ketones Urine Blood Urine Nitrite Ur Leukocyte Esterase Urine RBC Urine WBC Ur Squamous Epith Cells Urine Bacteria Hyaline Casts Digoxin Influenza Type A (PCR) POSITIVE A Influenza Type B (PCR) NEGATIVE RSV RNA Qual (PCR) NEGATIVE SARS-CoV-2 RNA (RT-PCR) NEGATIVE 10/18/24 10/18/24 10/19/24 15:08 22:31 04:07 WBC 9.1 RBC 4.29 L Hgb 13.1 L Hct 38.8 L MCV 90.4 MCH 30.5 MCHC 33.8 RDW 13.4 Plt Count 201 D MPV 11.1 Immature Gran % (Auto) 0.4 Neut % (Auto) 73.8 H Lymph % (Auto) 12.7 L [place] % (Auto) 10.6 Eos % (Auto) 2.3 Baso % (Auto) 0.2 Lymph # (Auto) 1.2 [place] # (Auto) 1.0 Eos # (Auto) 0.2 Baso # (Auto) 0.0 Abs Immat Gran (auto) 0.04 H Absolute Neuts (auto) 6.7 Absolute Nucleated RBC 0.000 Nucleated RBC % (auto) 0.0 Hold Purple Top Sodium 136 Potassium 4.0 Chloride 105 Carbon Dioxide 22 Anion Gap 13 BUN 25 H Creatinine 0.68 Estim Creat Clear Calc 114.5 Estimated GFR > 60 Random Glucose 101 Lactic Acid Calcium 8.3 L Total Bilirubin 0.5 Direct Bilirubin AST 35 ALT 36 Alkaline Phosphatase 73 Troponin I High Sens 169.4 H* B-Natriuretic Peptide Total Protein 6.3 L Albumin 2.7 L Lipase TSH Urine Color Dark Yellow Urine Appearance Clear Urine pH 5.0 Ur Specific [place] >= 1.030 H Urine Protein 100 (2+) H Urine Glucose (UA) Negative Urine Ketones Negative Urine Blood Negative Urine Nitrite Negative Ur Leukocyte Esterase Negative Urine RBC 0-2 Urine WBC 0-5 Ur Squamous Epith Cells 0-2 Urine Bacteria None Seen Hyaline Casts 3-5 Digoxin Influenza Type A (PCR) Influenza Type B (PCR) RSV RNA Qual (PCR) SARS-CoV-2 RNA (RT-PCR) 10/20/24 06:15 WBC 11.0 H RBC 4.33 L Hgb 13.1 L Hct 39.3 L MCV 90.8 MCH 30.3 MCHC 33.3 RDW 13.2 Plt Count 160 MPV 11.2 Immature Gran % (Auto) 0.4 Neut % (Auto) 81.7 H Lymph % (Auto) 7.3 L [place] % (Auto) 7.5 Eos % (Auto) 2.7 Baso % (Auto) 0.4 Lymph # (Auto) 0.8 L [place] # (Auto) 0.8 Eos # (Auto) 0.3 Baso # (Auto) 0.0 Abs Immat Gran (auto) 0.04 H Absolute Neuts (auto) 9.0 H Absolute Nucleated RBC 0.000 Nucleated RBC % (auto) 0.0 Hold Purple Top Sodium 136 Potassium 4.0 Chloride 106 Carbon Dioxide 22 Anion Gap 12 BUN 24 H Creatinine 0.78 Estim Creat Clear Calc 99.8 Estimated GFR > 60 Random Glucose 95 Lactic Acid Calcium 8.2 L Total Bilirubin Direct Bilirubin AST ALT Alkaline Phosphatase Troponin I High Sens B-Natriuretic Peptide Total Protein Albumin Lipase TSH 1.70 Urine Color Urine Appearance Urine pH Ur Specific [place] Urine Protein Urine Glucose (UA) Urine Ketones Urine Blood Urine Nitrite Ur Leukocyte Esterase Urine RBC Urine WBC Ur Squamous Epith Cells Urine Bacteria Hyaline Casts Digoxin 0.7 L Influenza Type A (PCR) Influenza Type B (PCR) RSV RNA Qual (PCR) SARS-CoV-2 RNA (RT-PCR) Airway Mallampati Class: II TM Dist: >3cm Loose/Missing/Broken Teeth: No Heart: IRRR Lungs: CTAB Assessment and Plan Assessment Anesthesia Assessment: Anesthesia Plan Discussed and Chart Reviewed Final Anesthetic Review Family History of Problems with Anesthesia: No History of Problems with Anesthesia: No NPO: Yes ASA Class: III and Emergency Final Preanesthetic Review: No Changes in Pt Med Stat, Meds/Allgs Chart Reviewed, Consent Obtained/Reviewed and Anes Risks/Benef Reviewed Patient Risk: Intermediate Procedure Risk: Low Anesthetic Plan Anesthetic Plan: TIVA Disposition: Standard PACU
[2024-10-20] MEDS: cefTRIAXone sodium 1 GM VIAL IVPUSH (11:37)
--- NOTE | 2024-10-20 13:50 | HO.PM.IMPN ---
Subjective Subjective Date of Service: 10/20/24 Interval History: seen and evaluated heart rate went up again overnight he becames anxious and restless requiring Lorazepam CIWA score of 2 no other events Review of Systems Review of Systems: Yes all other systems are reviewed and are negative Physical Exam Vital Signs: Vital Signs: Last Vital Signs Temp 97.5 F 10/20/24 13:43 Pulse 102 H 10/20/24 13:43 Resp 21 H 10/20/24 13:43 BP 135/106 H 10/20/24 13:43 Pulse Ox 87 L 10/20/24 13:43 O2 Del Method Room Air 10/20/24 13:43 O2 Flow Rate 2 10/18/24 12:08 BMI result Body Mass Index 22.7 Const: Other: Constitutional : Awake, interactive, not in distress Neck : Normal inspection, Supple Cardiovascular : irregular irregular, no JVP, trace lower extremity edema, tachycardia Respiratory : good bilateral air entry, finme crackles Gastrointestinal: soft, lax, Normal bowel sounds, Non tender Skin : Warm, Dry Neurological : Alert & oriented x3, No focal deficit Objective Data Active Medications Acetaminophen (Acetaminophen 325 Mg Tablet) 650 mg PO Q6H PRN PRN Reason: Pain, Mild 1-3,fever,headache Albuterol/Ipratropium (Albuterol/Iprat 2.5/0.5mg 3 Ml Ampul.Neb) 3 ml INHALE Q4H PRN PRN Reason: Shortness of Breath/Wheezing Last Admin: 10/19/24 02:42 Dose: 3 ml Documented By: HERMILA Apixaban (Apixaban 5 Mg Tablet) 5 mg PO BID [facility] Last Admin: 10/20/24 07:54 Dose: 5 mg Documented By: MARICARMEN Benzonatate (Benzonatate 100 Mg Capsule) 100 mg PO TID PRN PRN Reason: Cough Calcium Carbonate (Calcium Carbonate 750 Mg Tab.Chew) 750 mg PO Q4H PRN PRN Reason: Heartburn Ceftriaxone Sodium (Ceftriaxone Sodium 1 Gm Vial) 1 gm IVPUSH Q24H [facility] Last Admin: 10/20/24 11:37 Dose: 1 gm Documented By: MARICARMEN Diltiazem HCl 125 mg/ Sodium (Chloride) 125 mls @ 0 mls/hr IVCONT .Q0M [facility]; Protocol Last Titration: 10/19/24 13:37 Dose: Infused Documented By: MICHAEL Azithromycin 500 mg/ Sodium (Chloride) 250 mls @ 125 mls/hr IV Q24H [facility] Last Infusion: 10/20/24 10:02 Dose: Infused Documented By: MARICARMEN Lorazepam (Lorazepam 2 Mg/Ml Vial) 1 mg IVPUSH Q4H PRN PRN Reason: Anxiety Magnesium Hydroxide (Milk Of Magnesia 30 Ml Oral.Susp) 30 ml PO DAILY PRN PRN Reason: Constipation Melatonin (Melatonin 3 Mg Tablet) 6 mg PO BEDTIME PRN PRN Reason: Insomnia Last Admin: 10/19/24 23:43 Dose: 6 mg Documented By: MIRIAM Metoprolol Tartrate (Metoprolol Tartrate 5 Mg/5 Ml Vial) 5 mg IVPUSH Q6H PRN; Protocol PRN Reason: Heart Rate >110, hold SBP<100 Last Admin: 10/20/24 04:38 Dose: 5 mg Documented By: MIRIAM Metoprolol Tartrate (Metoprolol Tartrate 50 Mg Tablet) 50 mg PO QID [facility]; Protocol Last Admin: 10/20/24 08:01 Dose: 50 mg Documented By: MARICARMEN Naloxone HCl (Naloxone Hcl 0.4 Mg/Ml Vial) 0.04 mg IVPUSH Q5M PRN PRN Reason: Excessive sedation or RR < 8 Ondansetron HCl (Ondansetron Hcl 4 Mg/2 Ml Vial) 4 mg IVPUSH Q8H PRN PRN Reason: Nausea and Vomiting Ondansetron HCl (Ondansetron Hcl 4 Mg/2 Ml Vial) 4 mg IVPUSH ONCE PRN PRN Reason: Nausea and Vomiting Stop: 10/20/24 17:25 Oseltamivir Phosphate (Oseltamivir Phosphate 75 Mg Capsule) 75 mg PO Q12H [facility] Stop: 10/23/24 07:01 Last Admin: 10/20/24 07:54 Dose: 75 mg Documented By: MARICARMEN Sodium Chloride (0.9 % Sodium Chloride Flush 3 Ml Syringe) [facility] Last Admin: 10/20/24 07:56 Dose: 3 ml Documented By: MARICARMEN Labs 10/20/24 06:15 10/20/24 06:15 Labs: Laboratory Results - last 24 hr 10/20/24 06:15 MCV 90.8 MCH 30.3 MCHC 33.3 RDW 13.2 Plt Count 160 MPV 11.2 Immature Gran % (Auto) 0.4 Neut % (Auto) 81.7 H Lymph % (Auto) 7.3 L [place] % (Auto) 7.5 Eos % (Auto) 2.7 Baso % (Auto) 0.4 Lymph # (Auto) 0.8 L [place] # (Auto) 0.8 Eos # (Auto) 0.3 Baso # (Auto) 0.0 Abs Immat Gran (auto) 0.04 H Absolute Neuts (auto) 9.0 H Absolute Nucleated RBC 0.000 Nucleated RBC % (auto) 0.0 Anion Gap 12 Estim Creat Clear Calc 99.8 Estimated GFR > 60 Random Glucose 95 Calcium 8.2 L TSH 1.70 Digoxin 0.7 L Microbiology Microbiology Results: Microbiology 10/18/24 12:25 Blood Culture - Preliminary Blood - Venous No growth after 24 hours. 10/18/24 12:25 Blood Culture - Preliminary Blood - Venous No growth after 24 hours. Assessment and Plan (1) Acute systolic (congestive) heart failure: Status: Acute (2) Influenza A: Status: Acute (3) CHF (congestive heart failure): Status: Acute (4) Pneumonia: Status: Acute (5) Sepsis: Status: Acute (6) Hypoxia: Status: Acute (7) Atrial fibrillation with RVR: Status: Acute Plan A 68 years old male with no reported past medical history presented to ED with worsening shortness of breath and cough for over 1 week. New onset Atrial fibrillation with RvR dc Cardizem drip MEtoprolol 50 mg Q6 Continue Digoxin Cardiology input appreciated, Cardioversion done and he went back to Afib RvR after converting to sinus To load with Amiodarone 400 mg bid Eliquis as blood thinner new systolic CHF likely related to Afib and alcohol abuse Echo with low EF 10-15% Start Lasix as tolerated Cardiology input appreciated, cardioversion Start cardio Elevated Trop Delta negative for change 155 - [address]\T wave changes No chest pain, Likely type 2 Flu A continue Tamiflu Hypoxia secondary to Sepsis from Pneumonia Cover with Azithromycin and Ceftriaxone pending blood cultures Wean O2 down as tolerated DVT PPx Eliquis The patient will need overnight hospital stay for treatment of new onset Afib, CHF and Pneumonia on IV antibiotics, IV lasix, Cardiology intervention Quality Stroke Does the patient have a stroke diagnosis?: No VTE Prior VTE?: No VTE Risk Level:: Medical - moderate - high VTE Device Contraindication: Treatment Not Indicated VTE Drug Contraindication: N/A - Med Ordered
[2024-10-20] MEDS: Furosemide 20 MG/2 ML VIAL IVPUSH (14:25)
[2024-10-20] MEDS: Amiodarone HCL 200 MG TABLET 400 MG PO ×2 (14:25→20:12)
[2024-10-21] VITALS (9 sets, daily range): BP systolic 137–165; BP diastolic 93–114; PULSE 76–94; RESP 18; TEMP 36.3–37; O2SAT 93–98
[2024-10-21] MEDS: Oseltamivir Phosphate 75 MG CAPSULE PO (07:34)
[2024-10-21] MEDS: Furosemide 20 MG/2 ML VIAL IVPUSH (07:34)
[2024-10-21] MEDS: Apixaban 5 MG TABLET PO (07:34)
[2024-10-21] MEDS: Amiodarone HCL 200 MG TABLET 400 MG PO (07:34)
[2024-10-21] MEDS: 0.9 % Sodium Chloride Flush 3 ML SYRINGE IVFLUSH (07:35)
[2024-10-21] MEDS: Metoprolol Tartrate 50 MG TABLET PO ×2 (07:35→13:32)
[2024-10-21] MEDS: Azithromycin 500 MG in 0.9 % Sodium Chloride 250 ML 125 MG IV (07:35)
[2024-10-21 08:19] LABS: Anion Gap 12 (12-20); Blood Urea Nitrogen 18 mg/dL (9-16); Calcium 8.2 mg/dL (8.4-10.2); Carbon Dioxide 24 mmol/L (22-29); Chloride 107 mmol/L (96-108); Creatinine Clr Calc Pharmacy 106.7; Estimated Glomerular Filt Rate > 60; Glucose Random 88 mg/dL (60-115); Magnesium 1.9 mg/dL (1.6-2.6); Potassium 4.2 mmol/L (3.3-5.1); Sodium 139 mmol/L (135-145)
[2024-10-21 08:27] LABS: B Type Natriuretic Peptide 2933 pg/mL (<100)
--- NOTE | 2024-10-21 10:30 | PM.PNCARD ---
Subjective Subjective Date of Service: 10/21/24 Interval history: seen in follow up. Yesterday, we did MILLICENT/cardioversion. However, not successful and he is still in atrial fibrillation. However, he states he feels good. No cardiac symptoms at this time. Review of Systems Review of Systems Yes all other systems are reviewed and are negative Constitutional: Reports as per HPI and Reports no additional constitutional complaints Eyes: Reports as per HPI and Denies no additional eye complaints Denies system reviewed and no additional complaints, except as documented and Reports as per HPI Cardiovascular: Reports as per HPI, Reports no additional cardiovascular complaints, Denies acrocyanosis, Denies cool extremities, Denies chest pain, Denies leg edema, Denies lightheadedness, Denies palpitations and Denies dyspnea Respiratory: Reports as per HPI, Denies no additional respiratory complaints and Denies dyspnea Gastrointestinal: Reports as per HPI and Denies no additional gastrointestinal complaints Genitourinary: Reports no additional male genitourinary complaints and Reports as per HPI Musculoskeletal: Reports no additional musculoskeletal complaints and Reports as per HPI Skin/Breast: Reports system reviewed and no additional complaints, except as docu Reports system reviewed and no additional complaints, except as documented and Reports as per HPI Psychiatric: Reports no additional psychiatric complaints and Reports as per HPI Endocrine: Reports no additional endocrine complaints, Reports as per HPI and Denies palpitations Hematologic/Lymphatic: Reports no additional hematologic/lymphatic complaints and Reports as per HPI Allergic/Immunologic: Reports no additional allergic/immunologic complaints and Reports as per HPI Physical Exam Vital Signs: Last Vital Signs Temp 97.8 F 10/21/24 08:00 Pulse 90 10/21/24 08:00 Resp 18 10/21/24 08:00 BP 137/102 H 10/21/24 08:00 Pulse Ox 94 10/21/24 08:00 O2 Del Method Room Air 10/21/24 08:00 O2 Flow Rate 1 10/20/24 14:44 BMI result Body Mass Index 22.7 Const General: comfortable and no acute distress Orientation/consciousness: patient oriented x3 HEENT Other: Unremarkable Head: Yes normal to inspection Neck Neck: Yes normal visual inspection Chest Chest palpation & inspection: normal inspection of the chest Resp Auscultation: clear to auscultation bilaterally Cardio Palpation: normal PMI Heart sounds: S1 normal heart sound present, S2 normal heart sound present, no gallops, no murmurs and no rubs GI Palpation (GI): Soft to palpation Back/Spine/Pelvis Other: unremarkable Skin General skin exam: no rashes or lesions noted Neuro General: patient oriented x3 Extrem General: Yes normal to inspection Psych Mental Status: mental status grossly normal Objective Labs and Meds 10/20/24 06:15 10/21/24 07:03 Lab results: Laboratory Results - last 24 hr 10/21/24 07:03 Sodium 139 Potassium 4.2 Chloride 107 Carbon Dioxide 24 Anion Gap 12 BUN 18 H Creatinine 0.73 Estim Creat Clear Calc 106.7 Estimated GFR > 60 Random Glucose 88 Calcium 8.2 L Magnesium 1.9 B-Natriuretic Peptide 2933 H Progress Note: A&P Assessment and plan (1) Atrial fibrillation with RVR: Status: Acute Assessment and Plan: Status post cardioversion but not successful. Amiodarone load followed by maintenance. Beta-blockers. Likely rate and cardioversion in a few weeks. Continue anticoagulation. Avoid alcohol/substance abuse. Discussed. (2) Acute systolic (congestive) heart failure: Status: Acute Assessment and Plan: Markedly diminished LVEF. Could be some combination of ischemic and non-ischemic etiologies, cocaine etc., Beta-blockers, ARB or Entresto depending on insurance, diuretics, outpatient follow-up. Time Spent With Patient Time: Total time managing care of this patient today ____ minutes. Progress Note: Quality Stroke Does the patient have a stroke diagnosis?: No Procedures Date of Service Date of Service: 10/21/24
--- NOTE | 2024-10-21 11:30 | MHC.CM.PN ---
Patient has been medically cleared for dc to home today, self care. Last IMM addressed on 10/19/2024.
--- NOTE | 2024-10-21 11:35 | PM.DS ---
DS: Providers Provider Date of Service: 10/21/24 Date of admission: 10/18/24 16:40 Date of discharge: 10/21/24 Primary care physician: None Physician Consults: 10/18/24 16:43 Consult to Cardiology Routine Consulting Provider: [facility] Reason for consultation: New onset Afib w RvR DS: Diagnosis Discharge Diagnosis (1) Atrial fibrillation with RVR: Status: Acute (2) Acute systolic (congestive) heart failure: Status: Acute (3) Hypoxia: Status: Acute (4) Influenza A: Status: Acute (5) Pneumonia: Status: Acute (6) Sepsis: Status: Acute (7) Elevated troponin: Status: Acute (8) CHF (congestive heart failure): Status: Acute DS: Summary Hospital Course Hospital Course: Admission note HPI A 68 years old male with no reported past medical history presented to ED with worsening shortness of breath and cough for over 1 week. She reports coughing, dyspnea with exertion, chills but no fever. No chest pain, nausea, vomiting, diarrhea or urinary symptoms. In ED found to be in tachycardia with irregularity. reporting palpitations with no chest pain or heaviness. he noted swelling in his lower extremities. CXR showing possible pneumonia. lab work showing elevated Trop I and BNP. Started on Cardizem drip as multiple doses of IV Cardizem and Metoprolol did not control his heart. Wll be admitted for further work up and treatment. Hospital course The patient was admitted and treated for the following: # New onset Atrial fibrillation with RvR Started primarly on Cardizem drip and IV and PO MEtoprolol with no significant improvement as he was also loaded with Digoxin but remained in rapid afib. Cardizem drip was Dcd as his Echo showed significantly low EF of 10-15%. He was evaluated by Cardiology who tried Cardioversion done but he went back to Afib RvR after converting to sinus for short period of time. Loaded with AMiodarone and received Eliquis as blood thinner. Metoprolol increased to 50 mg QID with fair respons as Heart rate better controlled 80-100 now. To be discharged on Metoprolol XL 100 bid , Amiodarone loading and maintenance doses with Eliquis as blood thinner. To follow with cardiology in one month for repeat cardioversion. # New systolic CHF likely related to Afib and alcohol abuse . Echo with low EF 10-15%. Started Lasix IV with good response. Cardiology input appreciated. Losartan, Metoprolol Succinate and Lasix for now. To be followed by cardiology as outpatient for further adjustment of his medications. # Elevated Trop. Delta negative for change 155 - 169. EKG negative for ST\T wave changes. No chest pain, Likely type 2 # Flu A. Treated with Tamiflu. to continue for 2 more days on discahrge. # Hypoxia secondary to Sepsis from Pneumonia. Covered with Azithromycin and Ceftriaxone. NEgative blood cultures. Weaned O2 down to room air. To finish 5 more days of Ceftin and Doxycycline. Discharge plan Low salt diet Start Eliquis as blood thinner Start Metoprolol XL 100 mg two times a day for heart rate control Continue Amiodarone 400 mg two times a day for the next 10 days then start 200 mg daily. Lasix for fluid control Losartan for heart function Doxycycline and Ceftin for pneumonia Tamiflu for 2 more days for Influenza To follow with dr Howard in the office in 1 month Get a PCP come back to ED For worsening breathing, swelling , change in heart rate Time Attestation Discharge Coordination Time (in mins): 43 Quality: Safe Use of Opioids Does Pt have an Active Cancer Diagnosis on the Problem List?: No Quality: Stroke Does the patient have a stroke diagnosis?: No Physical Exam Vital Signs: Vital Signs: Last Vital Signs Temp 97.8 F 10/21/24 08:00 Pulse 90 10/21/24 08:00 Resp 18 10/21/24 08:00 BP 137/102 H 10/21/24 08:00 Pulse Ox 94 10/21/24 08:00 O2 Del Method Room Air 10/21/24 08:00 O2 Flow Rate 1 10/20/24 14:44 BMI result Body Mass Index 22.7 Const: Other: Constitutional : Awake, interactive, not in distress Neck : Normal inspection, Supple Cardiovascular : irregular irregular, no JVP, no lower extremity edema, Respiratory : good bilateral air entry, finme crackles Gastrointestinal: soft, lax, Normal bowel sounds, Non tender Skin : Warm, Dry Neurological : Alert & oriented x3, No focal deficit DS: Data Data Completed and Pending Labs on day of discharge: Laboratory Results - last 24 hr 10/21/24 07:03 Sodium 139 Potassium 4.2 Chloride 107 Carbon Dioxide 24 Anion Gap 12 BUN 18 H Creatinine 0.73 Estim Creat Clear Calc 106.7 Estimated GFR > 60 Random Glucose 88 Calcium 8.2 L Magnesium 1.9 B-Natriuretic Peptide 2933 H Preliminary micro results at discharge 10/18/24 12:25 Blood Culture - Preliminary Blood - Venous No growth after 48 hours. 10/18/24 12:25 Blood Culture - Preliminary Blood - Venous No growth after 48 hours. Imaging Chest x-ray: Radiologist's impression: ITS Impressions Chest X-Ray 10/18/24 10:44 IMPRESSION: 1. Multifocal pneumonitis suspected with more confluent pneumonia in the right base. 2. Suspect small right effusion. 3. Mild cardiac enlargement. A component of underlying CHF is a possibility. 4. Unfortunately, no prior available to compare. Electronically signed by: Cecilio Henry MD 10/18/2024 11:33 AM [facility] [place] Discharge Plan Discharge Anticipated Discharge Date/Time: 10/21/24 11:18 Patient Disposition: Home, Self-Care Discharge Diagnosis: New onset Heart failure New Atrial fibrillation Pneumonia, Influenza Referrals: Physician,None [Primary Care Provider] - 1 Week Discharge Medications: New amiodarone 200 mg Tablet 400 mg PO BID Qty: 40 0RF oseltamivir [Tamiflu] 75 mg Capsule 75 mg PO Q12H Qty: 4 0RF Eliquis 5 mg Tablet 5 mg PO BID Qty: 180 0RF furosemide 20 mg tablet 20 mg PO DAILY Qty: 90 0RF losartan 25 mg tablet 25 mg PO DAILY Qty: 90 0RF metoprolol succinate 100 mg tablet extended release 24 hr 100 mg PO BID Qty: 180 0RF amiodarone 200 mg tablet 200 mg PO DAILY Qty: 90 0RF Rx Instructions: AFter finishing 400 mg bid dose in 10 days doxycycline monohydrate 100 mg capsule 100 mg PO BID Qty: 10 0RF cefuroxime axetil 500 mg tablet 500 mg PO BID Qty: 10 0RF Discharge Orders: Discharge Order (Routine); Ordered 10/21/24 Ordered By: Hellen Cagle Diet: Low salt diet Activity on Discharge: As tolerated Stand Alone Forms: Patient Portal Discharge page Print Language: Portuguese Care Plan Goals: Low salt diet Start Eliquis as blood thinner Start Metoprolol XL 100 mg two times a day for heart rate control Continue Amiodarone 400 mg two times a day for the next 10 days then start 200 mg daily. Lasix for fluid control Losartan for heart function Doxycycline and Ceftin for pneumonia Tamiflu for 2 more days for Influenza To follow with dr Howard in the office in 1 month Get a PCP come back to ED For worsening breathing, swelling , change in heart rate Health Concerns: New onset heart failure and Atrial fibrillation Pneumonia and Influenza Plan of Treatment: Heart rate control medicaitons , blood thinners Antibiotics. Cardiology follow up Assessment: as above
[2024-10-21] MEDS: Metoprolol Succinate ER 100 MG TAB.ER.24H PO (11:39)
[2024-10-21] MEDS: cefTRIAXone sodium 1 GM VIAL IVPUSH (11:39)
--- NOTE | 2024-10-21 14:49 | HO.POSTANES ---
Post Anesthesia Evaluation Post Anesthesia Evaluation Date of Service: 10/21/24 Vital Signs: Vital Signs Temp Pulse Resp BP Pulse Ox O2 Del Method 10/21/24 13:32 90 137/102 H 10/21/24 11:39 90 137/102 H 10/21/24 11:26 98.6 F 90 18 154/106 H 94 Room Air 10/21/24 11:25 98 Room Air 10/21/24 08:00 97.8 F 90 18 137/102 H 94 Room Air 10/21/24 07:35 76 145/93 H 10/21/24 07:34 145/93 H 10/21/24 04:00 97.3 F 76 18 145/93 H 93 Room Air Anesthesia: TIVA Mental Status: Awake Pain Control: Satisfactory Nausea/Vomiting: None Hydration: Adequate Anesthesia-Related Issues: No Anes. Related Issues
== END 2024-10-21 14:38 | disposition home or self-care (01) | DRG 871 ==
LOC: HO.ED 16:15 → HO.EDOVER 16:59 → HO.IMC 10-19 13:46
PROVIDERS: Internal Medicine; Admitting Provider Student in an Organized Health Care Education/Training Program; Emergency Provider Emergency Medicine; Visit Provider Student in an Organized Health Care Education/Training Program
PROC: 5A2204Z Restoration of Cardiac Rhythm, Single (ICD-10-PCS; CPT 93312; principal; 2024-10-20 12:00)
PROC: 5A2204Z Restoration of Cardiac Rhythm, Single (ICD-10-PCS; 2024-10-20 12:00)
DX: A41.9 Sepsis, unspecified organism (principal); I50.21 Acute systolic (congestive) heart failure; J10.00 Influenza due to other identified influenza virus with unspecified type of pneumonia; R09.02 Hypoxemia; F10.10 Alcohol abuse, uncomplicated; Z20.822 Contact with and (suspected) exposure to COVID-19; Z79.01 Long term (current) use of anticoagulants; Z79.899 Other long term (current) drug therapy
CPT/HCPCS: 0241U; 36415; 71045; 80048; 80053; 80076; 80162; 81001; 83605; 83690; 83735; 83880; 84443; 84484; 85025; 87040; 92960; 93005; 93306; 94640; 99285; J0456; J0696; J1160; J1940; J2003; J2060; J2704; J2919; J3010; Q9957

== ENCOUNTER → 2024-10-18 10:42 | Outpatient (BNV) | payer SELFPAY | PROVIDERS: Admitting Provider Student in an Organized Health Care Education/Training Program; Emergency Provider Emergency Medicine; Visit Provider Internal Medicine | DX: I48.91 Unspecified atrial fibrillation (principal) | CPT/HCPCS: 93010 ==

== ENCOUNTER → 2024-10-18 10:44 | Outpatient (BNV) | payer SELFPAY | PROVIDERS: Emergency Provider Emergency Medicine; Visit Provider Radiology Diagnostic Radiology | DX: J18.9 Pneumonia, unspecified organism (principal); I51.7 Cardiomegaly | CPT/HCPCS: 71045 ==

== ENCOUNTER 2024-10-18 16:40 | Outpatient (BNV) | payer MEDICARE, SELFPAY | END 2024-10-20 10:00 | PROVIDERS: Admitting Provider Student in an Organized Health Care Education/Training Program; Emergency Provider Emergency Medicine; Visit Provider Internal Medicine | DX: Q21.12 Patent foramen ovale (principal); I36.1 Nonrheumatic tricuspid (valve) insufficiency; I34.0 Nonrheumatic mitral (valve) insufficiency; I70.0 Atherosclerosis of aorta | CPT/HCPCS: 76376; 93315; 93325 ==

== ENCOUNTER 2024-10-18 16:40 | Outpatient (BNV) | payer MEDICARE, SELFPAY | END 2024-10-19 07:00 | PROVIDERS: Admitting Provider Student in an Organized Health Care Education/Training Program; Emergency Provider Emergency Medicine; Visit Provider Internal Medicine | DX: I34.0 Nonrheumatic mitral (valve) insufficiency (principal); I51.7 Cardiomegaly | CPT/HCPCS: 93306 ==

== ENCOUNTER → 2024-10-18 16:40 | Outpatient (BNV) | payer MEDICARE, SELFPAY | PROVIDERS: Admitting Provider Student in an Organized Health Care Education/Training Program; Emergency Provider Emergency Medicine; Visit Provider Student in an Organized Health Care Education/Training Program | DX: I48.91 Unspecified atrial fibrillation (principal); I50.21 Acute systolic (congestive) heart failure; R09.02 Hypoxemia; J10.1 Influenza due to other identified influenza virus with other respiratory manifestations; J18.9 Pneumonia, unspecified organism; A41.9 Sepsis, unspecified organism; R79.89 Other specified abnormal findings of blood chemistry; I50.9 Heart failure, unspecified | CPT/HCPCS: 99223; 99233; 99239 ==

== ENCOUNTER → 2024-10-18 16:40 | Outpatient (BNV) | payer MEDICARE, SELFPAY | PROVIDERS: Admitting Provider Student in an Organized Health Care Education/Training Program; Emergency Provider Emergency Medicine; Visit Provider Internal Medicine | DX: I48.91 Unspecified atrial fibrillation (principal); I50.21 Acute systolic (congestive) heart failure | CPT/HCPCS: 99223; 99233 ==

== ENCOUNTER 2024-10-22 12:25 | Inpatient (IN) | payer MEDICARE, SELFPAY ==
[2024-10-22] VITALS (9 sets, daily range): BP systolic 149–184; BP diastolic 101–123; PULSE 56–118; RESP 16–27; TEMP 36.5–36.8; O2SAT 88–97; BMI 26.2
--- NOTE | 2024-10-22 | ECG_ITS ---
Test Reason : sob Blood Pressure : */* mmHG Vent. Rate : 101 BPM Atrial Rate : * BPM P-R Int : * ms QRS Dur : 104 ms QT Int : 366 ms P-R-T Axes : * -5 18 degrees QTcB Int : 474 ms Atrial fibrillation with rapid ventricular response Nonspecific ST and T wave abnormality Abnormal ECG When compared with ECG of 18-Oct-2024 10:33, Vent. rate has decreased by 56 bpm Referred By: Regan Donovan Electronically Signed By: MEDINA ORDONEZ
--- NOTE | ~2024-10-22 | XR_ITS ---
EXAMINATION: XR CHEST CLINICAL INFORMATION: sob COMPARISON: 10/18/2024. TECHNIQUE: Frontal view of the chest was obtained. FINDINGS: Cardiac silhouette is prominent and likely mildly enlarged. The right aspect of the heart is obscured. Mediastinal and hilar contours are normal. Aortic mural calcification. There are bilateral diffuse patchy airspace opacities, with more confluent opacity in the right lower lung. Loss of the right heart border likely indicates right middle lobe involvement. No pneumothorax. Suspect small right effusion. No definite left effusion. When compared with the recent prior, No focal osseous or soft tissue abnormality. Degenerative changes bilateral shoulder joints and spine. XR/XR chest 1V IMPRESSION: 1. Multifocal pneumonitis again demonstrated. Right basilar airspace opacity appears more confluent, with probable slight increase in size of the small right effusion. 2. No left effusion. 3. Mild cardiac enlargement. A component of underlying CHF is a possibility. Electronically signed by: Cecilio Henry MD 10/22/2024 01:33 PM [facility]
--- NOTE | 2024-10-22 12:56 | ED.SOB ---
HPI - SOB/Dyspnea General Chief Complaint: Dyspnea Stated Complaint: SOB 80% R, 98% 2LPM FROM CLINIC PER EMS Time Seen by Provider: 10/22/24 12:38 Source: patient and EMS Mode of arrival: EMS Limitations: no limitations History of Present Illness ED Provider: DR. 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 Then EMS was called and transported the patient to the ED. Related Data Previous Rx's ?Medication ?Instructions ?Recorded amiodarone 200 mg tablet 200 mg PO DAILY #90 tabs 10/21/24 amiodarone 200 mg tablet 400 mg (2 x 200 mg) PO BID #40 tabs 10/21/24 apixaban 5 mg tablet (Eliquis) 5 mg PO BID #180 tabs 10/21/24 cefuroxime axetil 500 mg tablet 500 mg PO BID #10 tabs 10/21/24 doxycycline monohydrate 100 mg 100 mg PO BID #10 caps 10/21/24 capsule furosemide 20 mg tablet 20 mg PO DAILY #90 tabs 10/21/24 losartan 25 mg tablet 25 mg PO DAILY #90 tabs 10/21/24 metoprolol succinate 100 mg 100 mg PO BID #180 tabs 10/21/24 tablet,extended release 24 hr oseltamivir 75 mg capsule (Tamiflu) 75 mg PO Q12H #4 caps 10/21/24 Allergies Allergy/AdvReac Type Severity Reaction Status Date / Time No Known Allergies Allergy Verified 10/22/24 12:45 Review of Systems Review of Systems: All other systems are reviewed and are negative Constitutional: Reports as per HPI and Reports no additional constitutional complaints Eyes: Reports as per HPI and Reports no additional eye complaints Reports system reviewed and no additional complaints, except as documented Cardiovascular: Reports as per HPI and Reports no additional cardiovascular complaints Respiratory: Reports as per HPI and Reports no additional respiratory complaints Gastrointestinal: Reports as per HPI and Reports no additional gastrointestinal complaints Genitourinary: Reports no additional female genitourinary complaints Musculoskeletal: Reports no additional musculoskeletal complaints Skin/Breast: Reports system reviewed and no additional complaints, except as docu Psychiatric: Reports no additional psychiatric complaints Endocrine: Reports no additional endocrine complaints Hematologic/Lymphatic: Reports no additional hematologic/lymphatic complaints Allergic/Immunologic: Reports no additional allergic/immunologic complaints Reports system reviewed and no additional complaints, except as documented and Reports Abnormal speech present [facility] Past Medical History Medical History HTN (hypertension) Social History Social History Household Members: None Housing: House Do you presently have visiting nurse or other home services: No Alcohol intake: current Alcohol intake frequency: a few times a week Patient Tobacco Use Status: Current everyday Tobacco user Tobacco use type: Cigarette Cigarette Packs Per Day: 0.5 Cigarettes Per Day: 10.0 Substance Use Type: Crack/Cocaine and Marijuana Advance Directives: No Advance Directives Information Provided: Yes service: No Physical Exam Vital Signs: Vital Signs: Last Vital Signs Temp 97.9 F 10/22/24 12:38 Pulse 106 H 10/22/24 12:38 Resp 20 10/22/24 12:38 BP 149/112 H 10/22/24 12:38 Pulse Ox 94 10/22/24 12:38 O2 Del Method Nasal Cannula 10/22/24 12:38 O2 Flow Rate 2 10/22/24 12:38 BMI result Body Mass Index 26.2 Vital signs have been reviewed and appear to be correct. Blood pressure elevated. Heart rate normal. Respiratory rate normal. Temperature normal. Oxygen saturation normal. Appearance: Alert. Oriented X3. No acute distress. Head: Normal external exam. Normocephalic. Atraumatic. No Souza signs noted. No raccoon eyes noted Eyes: PERRLA. EOMI. Conjunctiva and sclera normal. Eyelids normal. ENT: TM's Normal. Pharynx normal. Uvula midline. Moist mucous membranes. No trismus noted. No drooling noted. No muffled voice noted. Neck: Normal inspection. Neck supple. FROM. No adenopathy. Thyroid Normal. No meningeal signs. No neck mass noted. CVS: Normal heart rate and rhythm. Heart sound normal. No murmurs noted. Pulses normal throughout. Respiratory: No respiratory distress. Painless inspiration. Breath sounds normal. Bilateral basilar rales, Chest nontender. No accessory muscle usage noted or decreased air movement noted. Abdomen: Soft and nontender. Bowel sounds normal in all 4 quadrants. No distention noted. No organomegaly noted. No visible injury noted. Back: No CVA tenderness. Full range of motion noted. Skin: Skin warm and dry. Normal skin color. Normal skin turgor. No rashes/lesions/lacerations noted. Extremities: + 2 bilateral lower extremity edema. Extremities exhibit normal range of motion. Extremities nontender. Neuro: Oriented X 3. Cranial nerve exam: II-XII are grossly intact No motor deficit. No sensory deficit. Reflexes normal. Course Reevaluation(s) Reevaluation #1: 68-year-old male recently discharged from a [facility] for CHF/pneumonia/influenza a and hypoxia patient had an episode respiratory distress with hypoxia of 88% at the pharmacy while picking up his medication patient was brought back to the emergency department, physical exam is consistent with congestive heart failure will continue with ceftriaxone/doxycycline and Lasix. Time: 13:50 Medical Decision Making Differential Diagnosis Differential Diagnoses: The differential diagnosis associated with the presentation includes (CHF, pneumonia, pneumothorax, pleural effusion, influenza a, COVID 19 infection, RSV.) Admission/Observation Consideration of admission/observation: Escalation of care including admission/observation considered Lab Data MDM Lab Attestation statement: I reviewed the patient's lab results. 10/22/24 12:55 10/22/24 12:55 Labs: Lab Results 10/22/24 Range/Units 12:55 WBC 10.2 (4.8-10.8) X10*3/uL RBC 4.68 (4.60-5.80) X10*6/uL Hgb 14.2 (14.0-18.0) g/dl Hct 42.6 (42.0-52.0) % MCV 91.0 (80.0-98.0) fL MCH 30.3 (27.0-33.0) pg MCHC 33.3 (31.0-36.0) g/dl RDW 13.6 (11.0-16.0) % Plt Count 247 D (160-400) X10*3/uL MPV 10.7 (9.4-12.4) fL Immature Gran % (Auto) 0.6 H (0.0-0.4) % Neut % (Auto) 74.0 H (45-73) % Lymph % (Auto) 13.3 L (20-40) % [place] % (Auto) 8.9 (2-11) % Eos % (Auto) 2.7 (0-4) % Baso % (Auto) 0.5 (0-2) % Lymph # (Auto) 1.4 (1.2-4.9) X10*3/uL [place] # (Auto) 0.9 (0.1-1.2) X10*3/uL Eos # (Auto) 0.3 (0.0-0.4) X10*3/uL Baso # (Auto) 0.1 (0.0-0.2) X10*3/uL Abs Immat Gran (auto) 0.06 H (0.00-0.03) X10*3/uL Absolute Neuts (auto) 7.6 (2.0-8.3) x10*3/uL Absolute Nucleated RBC 0.000 (0.0-0.012) X10*3/uL Nucleated RBC % (auto) 0.0 (0.0-0.2) /100WBC Sodium 139 (135-145) mmol/L Potassium 5.0 (3.3-5.1) mmol/L Chloride 106 (96-108) mmol/L Carbon Dioxide 25 (22-29) mmol/L Anion Gap 13 (12-20) BUN 28 H (9-16) mg/dL Creatinine 0.90 (0.5-1.4) mg/dL Estim Creat Clear Calc 88.6 Estimated GFR > 60 Random Glucose 103 (60-115) mg/dL Calcium 8.9 D (8.4-10.2) mg/dL Total Bilirubin 0.3 (0.0-1.0) mg/dL AST 36 (5-37) U/L ALT 39 (0-40) U/L Alkaline Phosphatase 91 (39-117) U/L Troponin I High Sens 58.8 H D (<3.5-35.0) ng/L B-Natriuretic Peptide 3550 H (<100) pg/mL Total Protein 7.4 (6.5-8.0) g/dL Albumin 3.2 L (3.5-5.0) g/dL Influenza Type A (PCR) NEGATIVE (Negative) Influenza Type B (PCR) NEGATIVE (Negative) RSV RNA Qual (PCR) NEGATIVE (Negative) SARS-CoV-2 RNA (RT-PCR) NEGATIVE (Negative) Independent Interpretation I performed an independent interpretation of an: Plain X-Ray (Chest:. Multifocal pneumonitis again demonstrated. Right basilar airspace opacity appears more confluent, with probable slight increase in size of the small right effusion. 2. No left effusion. 3. Mild cardiac enlargement. A component of underlying CHF is a possibility.) Radiology Impression Discussion of test interpretation with radiology: I have reviewed the radiologist's reading. Discharge Plan Discharge Clinical Impression: Influenza A, Pneumonia, Acute systolic (congestive) heart failure Patient Disposition: Admitted As Inpatient Print Language: Hungarian
[2024-10-22 13:00] LABS: MANUAL DIFF FLAG NO
[2024-10-22 13:03] LABS: Basophils Absolute Auto 0.1 X10*3/uL (0.0-0.2); Basophils Percent Auto 0.5 % (0-2); Eosinophils Absolute Auto 0.3 X10*3/uL (0.0-0.4); Eosinophils Percent Auto 2.7 % (0-4); Hematocrit 42.6 % (42.0-52.0); Hemoglobin 14.2 g/dl (14.0-18.0); Imm Gran Abs Auto 0.06 X10*3/uL (0.00-0.03); Imm Gran Pct Auto 0.6 % (0.0-0.4); Lymphocytes Absolute Auto 1.4 X10*3/uL (1.2-4.9); Lymphocytes Percent Auto 13.3 % (20-40); Mean Corpuscular HGB Conc 33.3 g/dl (31.0-36.0); Mean Corpuscular Hemoglobin 30.3 pg (27.0-33.0); Mean Platelet Volume 10.7 fL (9.4-12.4); Monocytes Absolute Auto 0.9 X10*3/uL (0.1-1.2); Monocytes Percent Auto 8.9 % (2-11); Neutrophils Absolute Auto 7.6 x10*3/uL (2.0-8.3); Platelet Count 247 X10*3/uL (160-400); Red Blood Count 4.68 X10*6/uL (4.60-5.80); Red Cell Distribution Width 13.6 % (11.0-16.0); White Blood Count 10.2 X10*3/uL (4.8-10.8)
[2024-10-22 13:23] LABS: Alanine Aminotransferase 39 U/L (0-40); Albumin Level 3.2 g/dL (3.5-5.0); Alkaline Phosphatase 91 U/L (39-117); Anion Gap 13 (12-20); Aspartate Amino Transferase 36 U/L (5-37); B Type Natriuretic Peptide 3550 pg/mL (<100); Bilirubin Total 0.3 mg/dL (0.0-1.0); Blood Urea Nitrogen 28 mg/dL (9-16); Calcium 8.9 mg/dL (8.4-10.2); Carbon Dioxide 25 mmol/L (22-29); Chloride 106 mmol/L (96-108); Creatinine Clr Calc Pharmacy 88.6; Estimated Glomerular Filt Rate > 60; Glucose Random 103 mg/dL (60-115); Sodium 139 mmol/L (135-145); Total Protein 7.4 g/dL (6.5-8.0); Troponin-I High Sensitivity 58.8 ng/L (<3.5-35.0)
[2024-10-22 13:46] LABS: Influenza A PCR NEGATIVE (Negative); Influenza B PCR NEGATIVE (Negative); Resp Syncy Virus RNA Qual PCR NEGATIVE (Negative); SARS COV2 PCR INHOUSE NEGATIVE (Negative)
--- NOTE | 2024-10-22 14:15 | PHA.MEDREC ---
Addendum entered by Nely Pizarro RPh 10/22/24 14:21: Med rec was reviewed by [facility]. Original Note: Pharmacy Consult ? Medication Reconciliation Pharmacy has completed the medication reconciliation. Spoke with patient and confirmed with [facility]. He was discharged yesterday with new medications. He only picked up and started eliquis, metoprolol, and amiodarone, last taken this morning. Did not tow picker others due to no insurance. Left the others unconfirmed. Will let provider know.
[2024-10-22] MEDS: Doxycycline Hyclate 100 MG in 0.9 % Sodium Chloride 250 ML 166.67 MG IV (15:10)
[2024-10-22] MEDS: cefTRIAXone sodium 1 GM VIAL IVPUSH (15:10)
[2024-10-22] MEDS: Furosemide 40 MG/4 ML VIAL IVPUSH ×2 (15:10→19:22)
--- NOTE | 2024-10-22 15:50 | P.HPHOSP_ITS ---
History of Present Illness Date of Service: 10/22/24 Chief Complaint: Dyspnea A 68 years old male with PMH of New Afib, sCHF, Flu A and Pneumonia presented to ED with worsening shortness of breath and dyspnea for 1 day. 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 He reports the night before he had struggles going to sleep as he felt short of breath with PND and Orthopnea. No chest pain, palpitations, nausea, vomiting, diarrhea or urinary symptoms. In ED CXR showing increase markings. Elevated BNP. Admitted for further work up and treatment. Review of Systems 2 Review of Systems: No fever, chills or weakness No chest pain, palpitation having shortness of breath but no coughing No abdominal pain, nausea or vomiting No urinary symptoms No any rash or wounds [facility] Medical History Systolic heart failure Atrial fibrillation HTN (hypertension) Social History Household Members: None Housing: House Do you presently have visiting nurse or other home services: No Alcohol intake: current Alcohol intake frequency: a few times a week Patient Tobacco Use Status: Current everyday Tobacco user Tobacco use type: Cigarette Cigarette Packs Per Day: 0.5 Cigarettes Per Day: 10.0 Substance Use Type: Crack/Cocaine and Marijuana Advance Directives: No Advance Directives Information Provided: Yes service: No Meds Allergies Allergy/AdvReac Type Severity Reaction Status Date / Time No Known Allergies Allergy Verified 10/22/24 12:45 Physical Exam 2 Vital Signs and Narrative: Vital Signs: Last Vital Signs Temp 97.7 F 10/22/24 15:12 Pulse 86 10/22/24 15:12 Resp 16 10/22/24 15:12 BP 155/119 H 10/22/24 15:12 Pulse Ox 97 10/22/24 15:12 O2 Del Method Room Air 10/22/24 15:12 O2 Flow Rate 2 10/22/24 12:38 BMI result Body Mass Index 26.2 Const: Other: Constitutional : Awake, interactive, not in distress Neck : Normal inspection, Supple Cardiovascular : irregular irregular, no JVP, +2 lower extremity edema Respiratory : decreased bilateral air entry, basal fine crackles Gastrointestinal: soft, lax, Normal bowel sounds, Non tender Skin : Warm, Dry Neurological : Alert & oriented x3, No focal deficit Results Labs 10/22/24 12:55 10/22/24 12:55 Labs: Laboratory Results - last 24 hr 10/22/24 12:55 MCV 91.0 MCH 30.3 MCHC 33.3 RDW 13.6 Plt Count 247 D MPV 10.7 Immature Gran % (Auto) 0.6 H Neut % (Auto) 74.0 H Lymph % (Auto) 13.3 L Daniels % (Auto) 8.9 Eos % (Auto) 2.7 Baso % (Auto) 0.5 Lymph # (Auto) 1.4 Daniels # (Auto) 0.9 Eos # (Auto) 0.3 Baso # (Auto) 0.1 Abs Immat Gran (auto) 0.06 H Absolute Neuts (auto) 7.6 Absolute Nucleated RBC 0.000 Nucleated RBC % (auto) 0.0 Anion Gap 13 Estim Creat Clear Calc 88.6 Estimated GFR > 60 Random Glucose 103 Calcium 8.9 D Total Bilirubin 0.3 AST 36 ALT 39 Alkaline Phosphatase 91 B-Natriuretic Peptide 3550 H Total Protein 7.4 Albumin 3.2 L Influenza Type A (PCR) NEGATIVE Influenza Type B (PCR) NEGATIVE RSV RNA Qual (PCR) NEGATIVE SARS-CoV-2 RNA (RT-PCR) NEGATIVE Imaging Radiologist's Impressions: Impressions Chest X-Ray 10/22/24 13:06 IMPRESSION: 1. Multifocal pneumonitis again demonstrated. Right basilar airspace opacity appears more confluent, with probable slight increase in size of the small right effusion. 2. No left effusion. 3. Mild cardiac enlargement. A component of underlying CHF is a possibility. Electronically signed by: Cecilio Henry MD 10/22/2024 01:33 PM [facility] Assessment and Plan (1) Hypoxia: Status: Acute (2) Acute systolic (congestive) heart failure: Status: Acute (3) Influenza A: Status: Acute (4) Pneumonia: Status: Acute Plan A 68 years old male with PMH of New Afib, sCHF, Flu A and Pneumonia presented to ED with worsening shortness of breath and dyspnea for 1 day. Acute hypoxic failure 2/2 systolic CHF exacerbation CXR showing increase markings Echo with low EF 10-15% Start Lasix IV bid consider cardiology consult for cardioversion eval I\O persistent Atrial fibrillation rate better controlled MEtoprolol XL 100 mg bid Amiodarone 400 mg bid Eliquis as blood thinner Pneumonia, Influenza A, Pneumonitis Finish PO treatment with Doxy,Ceftin and Tamiflu Give IV steroid and switch to PO when better DVT PPx Eliquis The patient will need 2 overnight hospital stay for treatment of Hypoxia 2/2 CHF and Pneumonia on IV lasix with possible Cardiology intervention Quality Stroke Does the patient have a stroke diagnosis?: No VTE Prior VTE?: No VTE Risk Level:: Medical - moderate - high VTE Device Contraindication: Treatment Not Indicated VTE Drug Contraindication: N/A - Med Ordered
--- NOTE | 2024-10-22 18:12 | PC.NURSE ---
alert and oriented with even and unlabored respirations. has remained >94% on room air while resting in room. IV established, antibiotics have infused. afib on the monitor 80-120's on the monitor. ambulates independently.
--- NOTE | 2024-10-22 19:12 | PC.NURSE ---
This RN assumed pt care @ 1900. Pt a&ox4, no signs of distress. Pt denies pain at this time Pt requested and given drink Pt requested and curtain closed Plan of care ongoing..
[2024-10-22] MEDS: methylPREDNISolone Sod Succ 40 MG/ML VIAL IVPUSH (19:29)
--- NOTE | 2024-10-22 19:41 | PC.NURSE ---
Pt medicated per [facility] Plan of care ongoing.
[2024-10-22] MEDS: Apixaban 5 MG TABLET PO (21:32)
[2024-10-22] MEDS: Oseltamivir Phosphate 75 MG CAPSULE PO (21:32)
[2024-10-22] MEDS: Metoprolol Succinate ER 100 MG TAB.ER.24H PO (21:32)
[2024-10-22] MEDS: Amiodarone HCL 200 MG TABLET 400 MG PO (21:34)
--- NOTE | 2024-10-22 21:36 | PC.NURSE ---
Pt medicated per [facility] Plan of care ongoing.
[2024-10-23] VITALS (8 sets, daily range): BP systolic 126–150; BP diastolic 75–108; PULSE 88–110; RESP 16–22; TEMP 36.4–37; O2SAT 93–96
[2024-10-23 05:11] LABS: Anion Gap 14 (12-20); Blood Urea Nitrogen 30 mg/dL (9-16); Calcium 8.9 mg/dL (8.4-10.2); Carbon Dioxide 29 mmol/L (22-29); Chloride 105 mmol/L (96-108); Creatinine Clr Calc Pharmacy 69.9; Estimated Glomerular Filt Rate > 60; Glucose Random 129 mg/dL (60-115); Potassium 4.8 mmol/L (3.3-5.1); Sodium 143 mmol/L (135-145)
[2024-10-23 05:17] LABS: B Type Natriuretic Peptide 3815 pg/mL (<100)
[2024-10-23] MEDS: Apixaban 5 MG TABLET PO ×2 (09:08→21:18)
[2024-10-23] MEDS: Metoprolol Succinate ER 100 MG TAB.ER.24H PO ×2 (09:08→21:16)
[2024-10-23] MEDS: Amiodarone HCL 200 MG TABLET 400 MG PO ×2 (09:09→21:18)
[2024-10-23] MEDS: methylPREDNISolone Sod Succ 40 MG/ML VIAL IVPUSH ×2 (09:09→21:15)
[2024-10-23] MEDS: Oseltamivir Phosphate 75 MG CAPSULE PO ×2 (09:09→21:16)
[2024-10-23] MEDS: cefuroxime axetiL 500 MG TABLET PO ×2 (09:09→21:16)
[2024-10-23] MEDS: Doxycycline Monohydrate 100 MG CAPSULE PO ×2 (09:09→21:15)
[2024-10-23] MEDS: 0.9 % Sodium Chloride Flush 3 ML SYRINGE IVFLUSH ×3 (09:09→21:18)
[2024-10-23] MEDS: Furosemide 40 MG/4 ML VIAL IVPUSH ×2 (09:09→16:18)
--- NOTE | 2024-10-23 09:26 | PM.CNCAR ---
History of Present Illness History of Present Illness Date of Service: 10/23/24 Chief complaint: Hypoxia dyspnea Narrative: This is a cardiology consultation regarding congestive heart failure. Patient was actually just seen in the hospital. He came with heart failure as well as influenza. He was in atrial fibrillation rapid rate. We did a MILLICENT/cardioversion. However, not successful and he remained in atrial fibrillation. Plan was to continue amiodarone loading and then re-attempted in a few weeks' time. However, it seems that he was feeling short of breath and EMS was called. Oxygen saturation was only the 80s. Subsequently, he was readmitted. It seems that he has been getting diuretics. Somewhat better but he states that he just does not feel back to his normal self as yet. Review of Systems Review of Systems: Yes all other systems are reviewed and are negative Constitutional: Constitutional: Reports as per HPI and Reports no additional constitutional complaints Eyes: Eyes: Reports as per HPI and Denies no additional eye complaints ENT: Denies system reviewed and no additional complaints, except as documented and Reports as per HPI Cardiovascular: Cardiovascular: Reports as per HPI, Reports no additional cardiovascular complaints, Denies acrocyanosis, Denies cool extremities, Denies chest pain, Denies leg edema, Denies lightheadedness, Denies palpitations and Reports dyspnea Respiratory: Respiratory: Reports as per HPI, Denies no additional respiratory complaints and Reports dyspnea Gastrointestinal: Gastrointestinal: Reports as per HPI and Denies no additional gastrointestinal complaints Genitourinary: Genitourinary: Reports no additional male genitourinary complaints and Reports as per HPI Musculoskeletal: Musculoskeletal: Reports no additional musculoskeletal complaints and Reports as per HPI Integumentary/Breasts: Skin/Breast: Reports system reviewed and no additional complaints, except as docu Neurologic: Reports system reviewed and no additional complaints, except as documented and Reports as per HPI Psychiatric: Psychiatric: Reports no additional psychiatric complaints and Reports as per HPI Endocrine: Endocrine: Reports no additional endocrine complaints, Reports as per HPI and Denies palpitations Hematologic/Lymphatic: Hematologic/Lymphatic: Reports no additional hematologic/lymphatic complaints and Reports as per HPI Allergic/Immunologic: Allergic/Immunologic: Reports no additional allergic/immunologic complaints and Reports as per HPI REPLACED BY [facility] Past Medical History Medical History Systolic heart failure Atrial fibrillation HTN (hypertension) Family History Pertinent family history: No pertinent family history Social History Social History Household Members: None Housing: House Do you presently have visiting nurse or other home services: No Alcohol intake: current Alcohol intake frequency: a few times a week Patient Tobacco Use Status: Tobacco use Unknown Tobacco use type: Cigarette Cigarette Packs Per Day: 0.5 Cigarettes Per Day: 10.0 Substance Use Type: Crack/Cocaine and Marijuana Advance Directives: No Advance Directives Information Provided: Yes Do you have a plan to hurt others: No Plan service: No Meds Allergies Allergy/AdvReac Type Severity Reaction Status Date / Time No Known Allergies Allergy Verified 10/22/24 12:45 Active Medications: Current Medications Acetaminophen (Acetaminophen 325 Mg Tablet) 650 mg PO Q6H PRN PRN Reason: Pain, Mild 1-3,fever,headache Amiodarone HCl (Amiodarone Hcl 200 Mg Tablet) 400 mg PO BID [facility] Last Admin: 10/23/24 09:09 Dose: 400 mg Apixaban (Apixaban 5 Mg Tablet) 5 mg PO BID [facility] Last Admin: 10/23/24 09:08 Dose: 5 mg Benzonatate (Benzonatate 100 Mg Capsule) 100 mg PO TID PRN PRN Reason: Cough Calcium Carbonate (Calcium Carbonate 750 Mg Tab.Chew) 750 mg PO Q4H PRN PRN Reason: Heartburn Cefuroxime Axetil (Cefuroxime Axetil 500 Mg Tablet) 500 mg PO Q12H [facility] Last Admin: 10/23/24 09:09 Dose: 500 mg Doxycycline Monohydrate (Doxycycline Monohydrate 100 Mg Capsule) 100 mg PO Q12H [facility] Last Admin: 10/23/24 09:09 Dose: 100 mg Furosemide (Furosemide 40 Mg/4 Ml Vial) 40 mg IVPUSH BID@0900,1800 [facility]; Protocol Last Admin: 10/23/24 09:09 Dose: 40 mg Magnesium Hydroxide (Milk Of Magnesia 30 Ml Oral.Susp) 30 ml PO DAILY PRN PRN Reason: Constipation Melatonin (Melatonin 3 Mg Tablet) 6 mg PO BEDTIME PRN PRN Reason: Insomnia Methylprednisolone Sodium Succinate (Methylprednisolone Sod Succ 40 Mg/Ml Vial) 40 mg IVPUSH Q12H [facility] Last Admin: 10/23/24 09:09 Dose: 40 mg Metoprolol Succinate (Metoprolol Succinate Er 100 Mg Tab.Er.24h) 100 mg PO BID [facility]; Protocol Last Admin: 10/23/24 09:08 Dose: 100 mg Ondansetron HCl (Ondansetron Hcl 4 Mg/2 Ml Vial) 4 mg IVPUSH Q8H PRN PRN Reason: Nausea and Vomiting Oseltamivir Phosphate (Oseltamivir Phosphate 75 Mg Capsule) 75 mg PO BID [facility] Stop: 10/23/24 21:01 Last Admin: 10/23/24 09:09 Dose: 75 mg Sodium Chloride (0.9 % Sodium Chloride Flush 3 Ml Syringe) 3 ml IVFLUSH QSHIFT [facility] Last Admin: 10/23/24 09:09 Dose: 3 ml Physical Exam Vital Signs: Vital Signs: Last Vital Signs Temp 97.8 F 10/23/24 09:11 Pulse 89 10/23/24 09:11 Resp 18 10/23/24 09:11 BP 132/108 H 10/23/24 09:11 Pulse Ox 95 10/23/24 09:11 O2 Del Method Room Air 10/23/24 09:11 O2 Flow Rate 2 10/22/24 22:38 BMI result Body Mass Index 26.2 Const: General: comfortable and no acute distress Orientation/consciousness: patient oriented x3 HEENT: Other: Unremarkable Head: Yes normal to inspection Neck: Neck: Yes normal visual inspection Chest: Chest palpation & inspection: normal inspection of the chest Resp: Auscultation: crackles Cardio: Palpation: normal PMI Heart sounds: S1 normal heart sound present, S2 normal heart sound present, no gallops, no murmurs and no rubs GI: Palpation (GI): Soft to palpation Back/Spine/Pelvis: Other: unremarkable Skin: General skin exam: no rashes or lesions noted Neuro: General: patient oriented x3 Extrem: General: Yes normal to inspection Psych: Mental Status: mental status grossly normal Objective Labs and Meds 10/22/24 12:55 10/23/24 04:52 Lab results: Laboratory Results - last 24 hr 10/22/24 10/23/24 12:55 04:52 WBC 10.2 RBC 4.68 Hgb 14.2 Hct 42.6 MCV 91.0 MCH 30.3 MCHC 33.3 RDW 13.6 Plt Count 247 D MPV 10.7 Immature Gran % (Auto) 0.6 H Neut % (Auto) 74.0 H Lymph % (Auto) 13.3 L [place] % (Auto) 8.9 Eos % (Auto) 2.7 Baso % (Auto) 0.5 Lymph # (Auto) 1.4 [place] # (Auto) 0.9 Eos # (Auto) 0.3 Baso # (Auto) 0.1 Abs Immat Gran (auto) 0.06 H Absolute Neuts (auto) 7.6 Absolute Nucleated RBC 0.000 Nucleated RBC % (auto) 0.0 Sodium 139 143 Potassium 5.0 4.8 Chloride 106 105 Carbon Dioxide 25 29 Anion Gap 13 14 BUN 28 H 30 H Creatinine 0.90 1.14 Estim Creat Clear Calc 88.6 69.9 Estimated GFR > 60 > 60 Random Glucose 103 129 H Calcium 8.9 D 8.9 Total Bilirubin 0.3 AST 36 ALT 39 Alkaline Phosphatase 91 Troponin I High Sens 58.8 H D B-Natriuretic Peptide 3550 H 3815 H Total Protein 7.4 Albumin 3.2 L Influenza Type A (PCR) NEGATIVE Influenza Type B (PCR) NEGATIVE RSV RNA Qual (PCR) NEGATIVE SARS-CoV-2 RNA (RT-PCR) NEGATIVE ECG Interpretation: EKG shows atrial fibrillation at a rate of 101/Min; nonspecific ST-T changes. Imaging Radiologist's impression: Impressions Chest X-Ray 10/22/24 13:06 IMPRESSION: 1. Multifocal pneumonitis again demonstrated. Right basilar airspace opacity appears more confluent, with probable slight increase in size of the small right effusion. 2. No left effusion. 3. Mild cardiac enlargement. A component of underlying CHF is a possibility. Electronically signed by: Cecilio Henry MD 10/22/2024 01:33 PM [facility] Assessment and Plan (1) Acute systolic (congestive) heart failure: Status: Acute Elevated cardiac BNP suggestive of acute heart failure. Slightly higher than at the time of discharge. Continue diuretics. Guideline based medical therapy. Including beta-isaias, ARB. Uncertain compliance and hence will need to be adjusted further as an outpatient. (2) Atrial fibrillation with RVR: Status: Acute Status post MILLICENT/cardioversion. However, did not convert. Rate is not too fast at this time. Continue amiodarone loading. We can re-attempt cardioversion after 3-4 weeks of being on amiodarone. Procedures Date of Service Date of Service: 10/23/24
--- NOTE | 2024-10-23 09:37 | MHC.CM.PN ---
IMM addressed verbally r/t Contact Precautions. Patient lives alone and required no DME DETAILER. Patient has no PCP(PCP brochure has been provided)? plan for STR, pending PT Eval, since VNA will not be an option d/t no PCP. CM has initiated and will follow for dc planning. HCP declined.
--- NOTE | 2024-10-23 09:48 | PC.NURSE ---
this RN resumed care of pt at 0645. a&ox4. vss and up to date aside from being hypertensive. per previous vitals, BP seems to be trending down/improving at this time. pt displays w/ afib on the telemetry monitor - HR between 105-115bpm. pt currently denies any chest pain/palpitations. pt remains on RA w/o difficulty. no sob/wob noted. respirations even/unlabored. pt ambulates independently w/o any use of assistive devices. medication administered per provider order. pt transitioned into hospital bed to promote comfort. admission worksheet complete - pt waiting to be transferred upstairs at this time. plan of care ongoing. call hwang placed within reach.
--- NOTE | 2024-10-23 10:56 | PC.NURSE ---
Resumed care for this patient at this time
--- NOTE | 2024-10-23 11:35 | P.PNIM_ITS ---
Subjective Subjective Date of Service: 10/23/24 Interval History: seen and evaluated feels much better swelling improving no reported orthopnea overnight no other events Review of Systems Review of Systems: Yes all other systems are reviewed and are negative Physical Exam 2 Vital Signs: Vital Signs: Last Vital Signs Temp 97.8 F 10/23/24 09:11 Pulse 89 10/23/24 09:11 Resp 18 10/23/24 09:11 BP 132/108 H 10/23/24 09:11 Pulse Ox 95 10/23/24 09:11 O2 Del Method Room Air 10/23/24 09:11 O2 Flow Rate 2 10/22/24 22:38 BMI result Body Mass Index 26.2 Const: Other: Constitutional : Awake, interactive, not in distress Neck : Normal inspection, Supple Cardiovascular : irregular irregular, no JVP, +1 lower extremity edema Respiratory : improved bilateral air entry, basal fine crackles Gastrointestinal: soft, lax, Normal bowel sounds, Non tender Skin : Warm, Dry Neurological : Alert & oriented x3, No focal deficit Objective Data Active Medications Acetaminophen (Acetaminophen 325 Mg Tablet) 650 mg PO Q6H PRN PRN Reason: Pain, Mild 1-3,fever,headache Amiodarone HCl (Amiodarone Hcl 200 Mg Tablet) 400 mg PO BID [facility] Last Admin: 10/23/24 09:09 Dose: 400 mg Documented By: MARYELLEN Apixaban (Apixaban 5 Mg Tablet) 5 mg PO BID [facility] Last Admin: 10/23/24 09:08 Dose: 5 mg Documented By: MARYELLEN Benzonatate (Benzonatate 100 Mg Capsule) 100 mg PO TID PRN PRN Reason: Cough Calcium Carbonate (Calcium Carbonate 750 Mg Tab.Chew) 750 mg PO Q4H PRN PRN Reason: Heartburn Cefuroxime Axetil (Cefuroxime Axetil 500 Mg Tablet) 500 mg PO Q12H [facility] Last Admin: 10/23/24 09:09 Dose: 500 mg Documented By: MARYELLEN Doxycycline Monohydrate (Doxycycline Monohydrate 100 Mg Capsule) 100 mg PO Q12H [facility] Last Admin: 10/23/24 09:09 Dose: 100 mg Documented By: MARYELLEN Furosemide (Furosemide 40 Mg/4 Ml Vial) 40 mg IVPUSH BID@0900,1800 [facility]; Protocol Last Admin: 10/23/24 09:09 Dose: 40 mg Documented By: MARYELLEN Magnesium Hydroxide (Milk Of Magnesia 30 Ml Oral.Susp) 30 ml PO DAILY PRN PRN Reason: Constipation Melatonin (Melatonin 3 Mg Tablet) 6 mg PO BEDTIME PRN PRN Reason: Insomnia Methylprednisolone Sodium Succinate (Methylprednisolone Sod Succ 40 Mg/Ml Vial) 40 mg IVPUSH Q12H [facility] Last Admin: 10/23/24 09:09 Dose: 40 mg Documented By: MARYELLEN Metoprolol Succinate (Metoprolol Succinate Er 100 Mg Tab.Er.24h) 100 mg PO BID [facility]; Protocol Last Admin: 10/23/24 09:08 Dose: 100 mg Documented By: MARYELLEN Ondansetron HCl (Ondansetron Hcl 4 Mg/2 Ml Vial) 4 mg IVPUSH Q8H PRN PRN Reason: Nausea and Vomiting Oseltamivir Phosphate (Oseltamivir Phosphate 75 Mg Capsule) 75 mg PO BID [facility] Stop: 10/23/24 21:01 Last Admin: 10/23/24 09:09 Dose: 75 mg Documented By: MARYELLEN Sodium Chloride (0.9 % Sodium Chloride Flush 3 Ml Syringe) 3 ml IVFLUSH QSHIFT [facility] Last Admin: 10/23/24 09:09 Dose: 3 ml Documented By: MARYELLEN Labs 10/22/24 12:55 10/23/24 04:52 Labs: Laboratory Results - last 24 hr 10/22/24 10/23/24 12:55 04:52 MCV 91.0 MCH 30.3 MCHC 33.3 RDW 13.6 Plt Count 247 D MPV 10.7 Immature Gran % (Auto) 0.6 H Neut % (Auto) 74.0 H Lymph % (Auto) 13.3 L [place] % (Auto) 8.9 Eos % (Auto) 2.7 Baso % (Auto) 0.5 Lymph # (Auto) 1.4 [place] # (Auto) 0.9 Eos # (Auto) 0.3 Baso # (Auto) 0.1 Abs Immat Gran (auto) 0.06 H Absolute Neuts (auto) 7.6 Absolute Nucleated RBC 0.000 Nucleated RBC % (auto) 0.0 Anion Gap 13 14 Estim Creat Clear Calc 88.6 69.9 Estimated GFR > 60 > 60 Random Glucose 103 129 H Calcium 8.9 D 8.9 Total Bilirubin 0.3 AST 36 ALT 39 Alkaline Phosphatase 91 B-Natriuretic Peptide 3550 H 3815 H Total Protein 7.4 Albumin 3.2 L Influenza Type A (PCR) NEGATIVE Influenza Type B (PCR) NEGATIVE RSV RNA Qual (PCR) NEGATIVE SARS-CoV-2 RNA (RT-PCR) NEGATIVE Assessment and Plan (1) Hypoxia: Status: Acute (2) Acute systolic (congestive) heart failure: Status: Acute (3) Influenza A: Status: Acute (4) Pneumonia: Status: Acute Plan A 68 years old male with PMH of New Afib, sCHF, Flu A and Pneumonia presented to ED with worsening shortness of breath and dyspnea for 1 day. Acute hypoxic failure 2/2 systolic CHF exacerbation CXR showing increase markings Echo with low EF 10-15% continue Lasix IV bid cardiology consult for cardioversion eval follow BNP I\O persistent Atrial fibrillation rate better controlled MEtoprolol XL 100 mg bid Amiodarone 400 mg bid Eliquis as blood thinner Pneumonia, Influenza A, Pneumonitis Finish PO treatment with Doxy,Ceftin and Tamiflu Give IV steroid and switch to PO when better DVT PPx Eliquis The patient will need overnight hospital stay for treatment of Hypoxia 2/2 CHF and Pneumonia on IV lasix with possible Cardiology intervention Quality Stroke Does the patient have a stroke diagnosis?: No VTE Prior VTE?: No VTE Risk Level:: Medical - moderate - high VTE Device Contraindication: Treatment Not Indicated VTE Drug Contraindication: N/A - Med Ordered
--- NOTE | 2024-10-23 12:51 | MHC.CM.PN ---
Per Patient's request, a referral has been made to [facility]; Patient is requesting assistance with the completion of a Nanali katie.CM will follow.
[2024-10-24 04:00] VITALS: BP 132/94; PULSE 87; RESP 20; TEMP 36.3; O2SAT 92
[2024-10-24 07:28] LABS: Anion Gap 11 (12-20); Blood Urea Nitrogen 36 mg/dL (9-16); Calcium 8.5 mg/dL (8.4-10.2); Carbon Dioxide 31 mmol/L (22-29); Chloride 103 mmol/L (96-108); Creatinine Clr Calc Pharmacy 85.7; Estimated Glomerular Filt Rate > 60; Glucose Random 120 mg/dL (60-115); Magnesium 1.8 mg/dL (1.6-2.6); Potassium 4.2 mmol/L (3.3-5.1); Sodium 141 mmol/L (135-145)
[2024-10-24 07:34] LABS: B Type Natriuretic Peptide 1486 pg/mL (<100)
[2024-10-24 07:41] VITALS: BP 142/94; PULSE 88; RESP 20; TEMP 36.6; O2SAT 92
[2024-10-24] MEDS: Furosemide 40 MG/4 ML VIAL IVPUSH (08:40)
[2024-10-24] MEDS: cefuroxime axetiL 500 MG TABLET PO (08:41)
[2024-10-24] MEDS: Doxycycline Monohydrate 100 MG CAPSULE PO (08:41)
[2024-10-24] MEDS: Metoprolol Succinate ER 100 MG TAB.ER.24H PO (08:41)
[2024-10-24] MEDS: Amiodarone HCL 200 MG TABLET 400 MG PO (08:41)
[2024-10-24] MEDS: Apixaban 5 MG TABLET PO (08:41)
[2024-10-24] MEDS: methylPREDNISolone Sod Succ 40 MG/ML VIAL IVPUSH (08:42)
[2024-10-24] MEDS: 0.9 % Sodium Chloride Flush 3 ML SYRINGE IVFLUSH (08:46)
[2024-10-24 11:09] VITALS: BP 143/89; PULSE 85; RESP 20; TEMP 36.7; O2SAT 94
--- NOTE | 2024-10-24 11:55 | PM.DS ---
DS: Providers Provider Date of Service: 10/24/24 Date of admission: 10/22/24 15:47 Date of discharge: 10/24/24 Primary care physician: Unknown Physician Consults: 10/23/24 07:49 Consult to Cardiology Routine Consulting Provider: [facility] Reason for consultation: CHF exacerbation, PErsistent Afib. need of Cardioversion ? DS: Diagnosis Discharge Diagnosis (1) Hypoxia: Status: Acute (2) Acute systolic (congestive) heart failure: Status: Acute (3) Influenza A: Status: Acute (4) Pneumonia: Status: Acute DS: Summary Hospital Course Hospital Course: Admission note HPI A 68 years old male with PMH of New Afib, sCHF, Flu A and Pneumonia presented to ED with worsening shortness of breath and dyspnea for 1 day. 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 He reports the night before he had struggles going to sleep as he felt short of breath with PND and Orthopnea. No chest pain, palpitations, nausea, vomiting, diarrhea or urinary symptoms. In ED CXR showing increase markings. Elevated BNP. Admitted for further work up and treatment. Hospital course # Acute hypoxic failure secondary to systolic CHF exacerbation as CXR showing increase markings with significantly elevated BNP. most recent Echo with low EF 10-15%. Started on Lasix IV bid with fair response as BNP trended down and he was weaned off O2 and became able to ambulate on room air with no reported dyspnea, PND or orthopnea. To be discharged on higher dose of Lasix 40 mg daily with plan to follow with Cardiology as outpatient. # For persistent Atrial fibrillation his rate better controlled as he was resumed on MEtoprolol XL 100 mg bid, Amiodarone 400 mg bid and Eliquis as blood thinner # For Pneumonia, Influenza A, Pneumonitis which were treated last admission we continued PO treatment with Doxy,Ceftin and Tamiflu. He was Given IV steroid and switch to PO when better. Finished Tamiflu treatment. Discharge plan Take Lasix 40 mg daily. Monitor your weight and lower extremities swelling. if getting worse Take extra dose for 3 days and follow with PCP\Cardiology. Continue Amiodarone, Metoprolol for heart rate control Fluid restriction to 2898-3014 cc daily Follow with PCP and cardiology as scheduled. Time Attestation Discharge Coordination Time (in mins): 42 Quality: Safe Use of Opioids Does Pt have an Active Cancer Diagnosis on the Problem List?: No Quality: Stroke Does the patient have a stroke diagnosis?: No Physical Exam Vital Signs: Vital Signs: Last Vital Signs Temp 98.0 F 10/24/24 11:09 Pulse 85 10/24/24 11:09 Resp 20 10/24/24 11:09 BP 143/89 H 10/24/24 11:09 Pulse Ox 94 10/24/24 11:09 O2 Del Method Room Air 10/24/24 11:09 O2 Flow Rate 2 10/22/24 22:38 BMI result Body Mass Index 26.2 Const: Other: Constitutional : Awake, interactive, not in distress Neck : Normal inspection, Supple Cardiovascular : irregular irregular, no JVP, trace lower extremity edema Respiratory : improved bilateral air entry, basal fine crackles Gastrointestinal: soft, lax, Normal bowel sounds, Non tender Skin : Warm, Dry Neurological : Alert & oriented x3, No focal deficit DS: Data Data Completed and Pending Labs on day of discharge: Laboratory Results - last 24 hr 10/24/24 06:50 Sodium 141 Potassium 4.2 Chloride 103 Carbon Dioxide 31 H Anion Gap 11 L BUN 36 H Creatinine 0.93 Estim Creat Clear Calc 85.7 Estimated GFR > 60 Random Glucose 120 H Calcium 8.5 Magnesium 1.8 B-Natriuretic Peptide 1486 H Imaging Chest x-ray: Radiologist's impression: ITS Impressions Chest X-Ray 10/22/24 13:06 IMPRESSION: 1. Multifocal pneumonitis again demonstrated. Right basilar airspace opacity appears more confluent, with probable slight increase in size of the small right effusion. 2. No left effusion. 3. Mild cardiac enlargement. A component of underlying CHF is a possibility. Electronically signed by: Cecilio Henry MD 10/22/2024 01:33 PM [facility] Discharge Plan Discharge Anticipated Discharge Date/Time: 10/24/24 11:50 Patient Disposition: Home, Self-Care Discharge Diagnosis: Heart failure exacerbation Referrals: Physician,Unknown J [Primary Care Provider] - 1 Week Discharge Medications: New furosemide 40 mg tablet 40 mg PO DAILY Qty: 90 0RF prednisone 20 mg tablet 40 mg PO DAILY Qty: 8 0RF Continued amiodarone 200 mg Tablet 400 mg PO BID Qty: 40 0RF Eliquis 5 mg Tablet 5 mg PO BID Qty: 180 0RF losartan 25 mg tablet 25 mg PO DAILY Qty: 90 0RF metoprolol succinate 100 mg tablet extended release 24 hr 100 mg PO BID Qty: 180 0RF amiodarone 200 mg tablet 200 mg PO DAILY Qty: 90 0RF Rx Instructions: AFter finishing 400 mg bid dose in 10 days doxycycline monohydrate 100 mg capsule 100 mg PO BID Qty: 10 0RF cefuroxime axetil 500 mg tablet 500 mg PO BID Qty: 10 0RF Discontinued oseltamivir [Tamiflu] 75 mg Capsule 75 mg PO Q12H Qty: 4 0RF furosemide 20 mg tablet 20 mg PO DAILY Qty: 90 0RF Discharge Orders: Discharge Order (Routine); Ordered 10/24/24 Ordered By: Hellen Cagle Diet: Low salt diet Activity on Discharge: As tolerated Stand Alone Forms: Patient Portal Discharge page Print Language: Arabic Care Plan Goals: Take Lasix 40 mg daily. Monitor your weight and lower extremities swelling. if getting worse Take extra dose for 3 days and follow with PCP\Cardiology. Continue Amiodarone, Metoprolol for heart rate control Fluid restriction to 4525-5990 cc daily Follow with PCP and cardiology as scheduled. Health Concerns: Heart failure exacerbation Plan of Treatment: Lasix Fluid restriction Assessment: as above
--- NOTE | 2024-10-24 11:59 | MHC.CM.PN ---
Patient has been medically cleared for dc to home today, self care. Last IMM was addressed yesterday.
--- NOTE | 2024-10-24 13:48 | P.CDIM_ITS ---
PROVIDER RESPONSE TEXT: To clarify, the appropriate diagnosis supported by the clinical indicators: Acute hypoxic respiratory failure QUERY TEXT: PHYSICIAN'S DOCUMENTATION REQUEST Date of Query: 10/24/2024 10:53 AM EST Patient Name: Sudhakar Sprague Admit Date: 10/22/2024 Dear Hellen Cagle MD, A review of the medical record indicates additional documentation may be needed. Please review below and update the documentation accordingly. Clinical Indicators: Per Hospitalist Progress note 10/23/24: Acute hypoxic failure 2/2 systolic CHF exacerbation Please clarify which of the following accurately represents the patient's hypoxic status: Acute hypoxic respiratory failure Other (explain) Clinically unable to determine (explain) Thank you, Alisia Colindres RN Use of terms such as suspected, likely, concern for, or probable (associated with a specific diagnosi s that is being evaluated, monitored, or treated as if it exists) are acceptable and can be coded in the inpatient se tting, when documented at the time of discharge. Please use your independent medical judgment in providing your response. THIS QUERY IS PART OF THE PERMANENT MEDICAL RECORD
--- NOTE | 2024-10-24 15:18 | HO.PM.IMPN ---
Subjective Subjective Date of Service: 10/24/24 Interval History: seen and evaluated feels much better swelling improving no reported orthopnea overnight no other events Physical Exam Vital Signs: Vital Signs: Last Vital Signs Temp 98.0 F 10/24/24 11:09 Pulse 85 10/24/24 11:09 Resp 20 10/24/24 11:09 BP 143/89 H 10/24/24 11:09 Pulse Ox 94 10/24/24 11:09 O2 Del Method Room Air 10/24/24 11:09 O2 Flow Rate 2 10/22/24 22:38 BMI result Body Mass Index 26.2 Const: Other: Constitutional : Awake, interactive, not in distress Neck : Normal inspection, Supple Cardiovascular : irregular irregular, no JVP, trace lower extremity edema Respiratory : improved bilateral air entry, basal fine crackles Gastrointestinal: soft, lax, Normal bowel sounds, Non tender Skin : Warm, Dry Neurological : Alert & oriented x3, No focal deficit Objective Data Active Medications Acetaminophen (Acetaminophen 325 Mg Tablet) 650 mg PO Q6H PRN PRN Reason: Pain, Mild 1-3,fever,headache Amiodarone HCl (Amiodarone Hcl 200 Mg Tablet) 400 mg PO BID [facility] Last Admin: 10/24/24 08:41 Dose: 400 mg Documented By: YARED Apixaban (Apixaban 5 Mg Tablet) 5 mg PO BID [facility] Last Admin: 10/24/24 08:41 Dose: 5 mg Documented By: YARED Benzonatate (Benzonatate 100 Mg Capsule) 100 mg PO TID PRN PRN Reason: Cough Calcium Carbonate (Calcium Carbonate 750 Mg Tab.Chew) 750 mg PO Q4H PRN PRN Reason: Heartburn Cefuroxime Axetil (Cefuroxime Axetil 500 Mg Tablet) 500 mg PO Q12H [facility] Last Admin: 10/24/24 08:41 Dose: 500 mg Documented By: YARED Doxycycline Monohydrate (Doxycycline Monohydrate 100 Mg Capsule) 100 mg PO Q12H [facility] Last Admin: 10/24/24 08:41 Dose: 100 mg Documented By: YARED Furosemide (Furosemide 40 Mg/4 Ml Vial) 40 mg IVPUSH BID@0900,1800 [facility]; Protocol Last Admin: 10/24/24 08:40 Dose: 40 mg Documented By: YARED Magnesium Hydroxide (Milk Of Magnesia 30 Ml Oral.Susp) 30 ml PO DAILY PRN PRN Reason: Constipation Melatonin (Melatonin 3 Mg Tablet) 6 mg PO BEDTIME PRN PRN Reason: Insomnia Methylprednisolone Sodium Succinate (Methylprednisolone Sod Succ 40 Mg/Ml Vial) 40 mg IVPUSH Q12H [facility] Last Admin: 10/24/24 08:42 Dose: 40 mg Documented By: YARED Metoprolol Succinate (Metoprolol Succinate Er 100 Mg Tab.Er.24h) 100 mg PO BID [facility]; Protocol Last Admin: 10/24/24 08:41 Dose: 100 mg Documented By: YARED Ondansetron HCl (Ondansetron Hcl 4 Mg/2 Ml Vial) 4 mg IVPUSH Q8H PRN PRN Reason: Nausea and Vomiting Sodium Chloride (0.9 % Sodium Chloride Flush 3 Ml Syringe) 3 ml IVFLUSH QSHIFT [facility] Last Admin: 10/24/24 08:46 Dose: 3 ml Documented By: YARED Labs 10/22/24 12:55 10/24/24 06:50 Labs: Laboratory Results - last 24 hr 10/24/24 06:50 Anion Gap 11 L Estim Creat Clear Calc 85.7 Estimated GFR > 60 Random Glucose 120 H Calcium 8.5 Magnesium 1.8 B-Natriuretic Peptide 1486 H Assessment and Plan Plan A 68 years old male with PMH of New Afib, sCHF, Flu A and Pneumonia presented to ED with worsening shortness of breath and dyspnea for 1 day. Acute hypoxic failure 2/2 systolic CHF exacerbation CXR showing increase markings Echo with low EF 10-15% continue Lasix IV bid cardiology consult for cardioversion eval follow BNP I\O persistent Atrial fibrillation rate better controlled MEtoprolol XL 100 mg bid Amiodarone 400 mg bid Eliquis as blood thinner Pneumonia, Influenza A, Pneumonitis Finish PO treatment with Doxy,Ceftin and Tamiflu Give IV steroid and switch to PO when better DVT PPx Eliquis The patient will need overnight hospital stay for treatment of Hypoxia 2/2 CHF and Pneumonia on IV lasix with possible Cardiology intervention Quality Stroke Does the patient have a stroke diagnosis?: No VTE Prior VTE?: No VTE Risk Level:: Medical - moderate - high VTE Device Contraindication: Treatment Not Indicated VTE Drug Contraindication: N/A - Med Ordered
== END 2024-10-24 16:37 | disposition home or self-care (01) | DRG 291 ==
LOC: HO.ED 13:49 → HO.EDOVER 16:06 → HO.IMC 10-23 09:14
PROVIDERS: Admitting Provider Student in an Organized Health Care Education/Training Program; Emergency Provider Emergency Medicine; Visit Provider Student in an Organized Health Care Education/Training Program
DX: I11.0 Hypertensive heart disease with heart failure (principal); I50.21 Acute systolic (congestive) heart failure; J10.00 Influenza due to other identified influenza virus with unspecified type of pneumonia; J96.01 Acute respiratory failure with hypoxia; I48.19 Other persistent atrial fibrillation; Z20.822 Contact with and (suspected) exposure to COVID-19
CPT/HCPCS: 0241U; 36415; 71045; 80048; 80053; 83735; 83880; 84484; 85025; 93005; 99285; J0696; J1940; J2919

== ENCOUNTER → 2024-10-22 13:06 | Outpatient (BNV) | payer MEDICARE, SELFPAY | PROVIDERS: Emergency Provider Emergency Medicine; Visit Provider Radiology Diagnostic Radiology | DX: J18.9 Pneumonia, unspecified organism (principal); J90 Pleural effusion, not elsewhere classified; I51.7 Cardiomegaly | CPT/HCPCS: 71045 ==

== ENCOUNTER → 2024-10-22 13:10 | Outpatient (BNV) | payer MEDICARE, SELFPAY | PROVIDERS: Emergency Provider Emergency Medicine; Visit Provider Student in an Organized Health Care Education/Training Program | DX: R09.02 Hypoxemia (principal); I50.21 Acute systolic (congestive) heart failure; J10.1 Influenza due to other identified influenza virus with other respiratory manifestations; J18.9 Pneumonia, unspecified organism | CPT/HCPCS: 99233 ==

== ENCOUNTER → 2024-10-22 15:01 | Outpatient (BNV) | payer MEDICARE, SELFPAY | PROVIDERS: Admitting Provider Student in an Organized Health Care Education/Training Program; Emergency Provider Emergency Medicine; Visit Provider Internal Medicine | DX: I48.91 Unspecified atrial fibrillation (principal) | CPT/HCPCS: 93010 ==

== ENCOUNTER → 2024-10-22 15:47 | Outpatient (BNV) | payer MEDICARE, SELFPAY | PROVIDERS: Admitting Provider Student in an Organized Health Care Education/Training Program; Emergency Provider Emergency Medicine; Visit Provider Internal Medicine | DX: I50.21 Acute systolic (congestive) heart failure (principal); I48.91 Unspecified atrial fibrillation | CPT/HCPCS: 99223 ==